=== PATIENT | female | born 1965 | race Caucasian/White ===

== ENCOUNTER 2016-12-25 17:05 | Emergency (ER) | payer MEDICARE, MEDICAID ==
[~2016-12-25 17:05] MED LIST: ALPR1 PO; ASPI81TA82 PO; ATOR40TA49 PO; CARV6.252 PO; CLOP75 PO; COLL30OI3 TOP; DOCU1CAP39 PO; FENO145T2 PO; FLUC100T41 PO; FLUO40CA PO; GABA300C3 PO; GENT0.1C TOP; HUMALOGP SQ; LEVEMIR SQ; LISI-591 PO; MAPA325T6 PO; METF500 PO; NITR0.4S SL; OXYC1SOL5 PO; PROT40TA PO; RANO500 PO; ROPI1TAB72 PO; TRAZ50TA4 PO; Z.0.COMMODE-3:1
[2016-12-25 17:08] VITALS: BP 135/78; PULSE 82; RESP 16; TEMP 97; O2SAT 99
[2016-12-25] MEDS ORDERED: KETOROLAC TROMETHAMINE 60 MG/2 ML (IM) VIAL IM ONE (17:30)
--- NOTE | 2016-12-25 17:31 | PD ---
HPI Chief Complaint: Oral / Dental Pain or Problem Time Seen by Provider: 17:15 Travel History International Travel<30 days: No Contact w/Intl Traveler<30days: No Traveled to known affect area: No History of Present Illness HPI 51-year-old female presents to the emergency department for evaluation of left lower gum pain 2 weeks. Patient reports irritation and pain of the gums on the left lower side and facial swelling. She reports possible denture irritation to the gum. She denies fever or chills. She denies chest pain, shortness of breath, nausea vomiting or diarrhea PFSH Past Medical History Hx Anticoagulant Therapy: No Arthritis: Yes Asthma: No Autoimmune Disease: No Anxiety: Yes Depression: Yes Heart Rhythm Problems: No Cancer: No Cardiac Catheterization: Yes Cardiovascular Problems: Yes High Cholesterol: Yes Chemotherapy: No Chest Pain: Yes Congestive Heart Failure: Yes COPD: No Cerebrovascular Accident: No Coronary Artery Disease: Yes Diabetes: Yes Patient Takes Glucophage: Yes Diminished Hearing: Yes Endocrine: Yes Gastrointestinal Disorders: Yes (GASTROPARESIS) GERD: Yes Genitourinary: Yes Hiatal Hernia: Yes (repaired in 2013) Heparin Induced Thrombocytopen: No Hypertension: Yes Immune Disorder: No Implanted Vascular Access Dvce: No Kidney Stones: No Musculoskeletal: Yes Neurologic: Yes (Anxiety) Psychiatric: Yes Reproductive: No Respiratory: Yes Immunizations Current: Yes Migraines: No Myocardial Infarction: Yes (02/2000) Radiation Therapy: No Renal Failure: No Seizures: No Sickle Cell Disease: No Sleep Apnea: No Thyroid Disease: No Tetanus Vaccination: > 5 Years Influenza Vaccination: No ?: Not Menopausal: Yes Past Surgical History Abdominal Surgery: Yes (Hernia, gallbladder removal) AICD: No Arteriovenous Shunt: No Cardiac Surgery: No Section: Yes Cholecystectomy: Yes Ear Surgery: No Endocrine Surgery: No Eye Surgery: No Genitourinary Surgery: No Gynecologic Surgery: Yes (C section) Hysterectomy: No Insulin Pump: No Joint Replacement: No Oral Surgery: No Pacemaker: No Thoracic Surgery: No Other Surgery: Yes (LEFT BUTTOCK ABCESS) Social History Alcohol Use: No Tobacco Use: Yes (1ppd) Substance Use: Yes (marijuana for stomach. not medical or prescibed) Allergies-Medications (Allergen,Severity, Reaction): Coded Allergies: No Known Allergies (Unverified , 12/25/16) Reported Meds & Prescriptions Reported Meds & Active Scripts Active Penicillin V Potassium 250 Mg Tab 250 Mg PO Q6H Reported Plavix (Clopidogrel Bisulfate) 75 Mg Tab 75 Mg PO DAILY Aspirin Low Dose (Aspirin) 81 Mg Chew 81 Mg CHEW DAILY Atorvastatin (Atorvastatin Calcium) 40 Mg Tab 40 Mg PO HS Carvedilol 6.25 Mg Tab 6.25 Mg PO BID Gabapentin 300 Mg Cap 300 Mg PO TID Metformin (Metformin HCl) 1,000 Mg Tab 1,000 Mg PO BIDPC With meals Lisinopril 20 Mg Tab 20 Mg PO DAILY Fluoxetine (Fluoxetine HCl) 40 Mg Cap 40 Cap PO DAILY Protonix (Pantoprazole Sodium) 40 Mg Tab 40 Mg PO DAILY Ranexa ER 12 HR (Ranolazine) 500 Mg Tab 500 Mg PO BID Requip (Ropinirole) 1 Mg Tab 1 Mg PO BID Trazodone (Trazodone HCl) 150 Mg Tablet 150 Mg PO HS Review of Systems Except as stated in HPI: all other systems reviewed are Neg Physical Exam Narrative GENERAL: Well-nourished, well-developed patient. SKIN: Focused skin assessment warm/dry. HEAD: Normocephalic. EYES: No scleral icterus. No injection or drainage. MOUTH: Mucous membranes moist, no lesions, tongue and gums appear normal. Left lower gum is erythematous and tender to palpation. Patient has no teeth in the lower jaw. NECK: Supple, trachea midline. No JVD or lymphadenopathy. CARDIOVASCULAR: Regular rate and rhythm without murmurs, gallops, or rubs. RESPIRATORY: Breath sounds equal bilaterally. No accessory muscle use. GASTROINTESTINAL: Abdomen soft, non-tender, nondistended. Data Data Last Documented VS Vital Signs Date Time Temp Pulse Resp B/P (MAP) Pulse Ox O2 Delivery O2 Flow Rate FiO2 12/25/16 17:08 97.0 82 16 135/78 (97) 99 Orders Orders Ketorolac Inj (Toradol Inj) (12/25/16 17:30) [facility] Medical Decision Making Medical Screen Exam Complete: Yes Emergency Medical Condition: Yes Differential Diagnosis Oral infection, TMJ, oral abscess Narrative Course 51-year-old female presents emergency department for evaluation of left lower gum pain 2 weeks. Patient reports irritation and pain of the gums on the left lower side and facial swelling. She reports possible denture irritation to the gum. She denies fever or chills. On exam patient has erythema and gum tenderness and left lower side. Patient be treated for oral infection. Instructed to follow-up with dentist. Patient verbalizes understanding and agrees to plan. Diagnosis Primary Impression: Oral infection Referrals: Dentist Additional Instructions: You may take [id number] Tylenol or Motrin as needed for pain. Continue the antibiotics as prescribed. Follow-up with her dentist. Scripts Penicillin V Potassium (Penicillin V Potassium) 250 Mg Tab 250 MG PO Q6H for Infection, #28 TAB 0 Refills Prov: Megan Zavala 12/25/16 Disposition: 01 DISCHARGE HOME Condition: Stable Megan Zavala Dec 25, 2016 17:31
[2016-12-25] MEDS ORDERED: TRAZ1TAB45 PO (17:32)
[2016-12-25] MEDS ORDERED: RANO500 PO (17:32)
[2016-12-25] MEDS ORDERED: LISI-515 PO (17:32)
[2016-12-25] MEDS ORDERED: ROPI1TAB72 PO (17:32)
[2016-12-25] MEDS ORDERED: FLUO40CA PO (17:32)
[2016-12-25] MEDS ORDERED: PROT40TA PO (17:32)
[2016-12-25] MEDS ORDERED: METF1000 PO (17:32)
[2016-12-25] MEDS ORDERED: ASPI81CH37 CHEW (17:32)
[2016-12-25] MEDS ORDERED: ATOR40TA16 PO (17:32)
[2016-12-25] MEDS ORDERED: GABA300C5 PO (17:32)
[2016-12-25] MEDS ORDERED: CARV6.252 PO (17:32)
[2016-12-25] MEDS ORDERED: PLAV75TA29 PO (17:32)
[2016-12-25] MEDS ORDERED: PENI250T PO (17:36)
== END 2016-12-25 17:58 | disposition home or self-care (01) ==
LOC: PHEFT 17:05
DX: K04.7 Periapical abscess without sinus (principal); E11.9 Type 2 diabetes mellitus without complications; I10 Essential (primary) hypertension; E78.00 Pure hypercholesterolemia, unspecified; I25.2 Old myocardial infarction; F17.200 Nicotine dependence, unspecified, uncomplicated; Z79.84 Long term (current) use of oral hypoglycemic drugs; Z87.39 Personal history of other diseases of the musculoskeletal system and connective tissue; Z86.59 Personal history of other mental and behavioral disorders; Z86.79 Personal history of other diseases of the circulatory system; Z87.19 Personal history of other diseases of the digestive system; Z87.448 Personal history of other diseases of urinary system
CPT/HCPCS: 96374; 99284; J1885

== ENCOUNTER 2017-08-24 19:45 | Observation (INO) | payer MEDICARE, MEDICAID ==
[~2017-08-24] VITALS: Ht 175.3 cm; Wt 75.0 kg
[~2017-08-24 19:45] MED LIST changes: -ALPR1 PO; +ASPI81CH6 CHEW; -ASPI81TA82 PO; +ATOR40TA16 PO; -ATOR40TA49 PO; -CLOP75 PO; -COLL30OI3 TOP; -DOCU1CAP39 PO; -FENO145T2 PO; +FLU60SYR19 IM; -FLUC100T41 PO; -GABA300C3 PO; +GABA300C5 PO; -GENT0.1C TOP; -HUMALOGP SQ; -LEVEMIR SQ; +LISI-515 PO; -LISI-591 PO; -MAPA325T6 PO; +METF1000 PO; -METF500 PO; -NITR0.4S SL; -OXYC1SOL5 PO; +PLAV75TA29 PO; +PNEU0.5I2 SQ; +TRAZ1TAB14 PO; -TRAZ50TA4 PO; +WHEEMIS3; -Z.0.COMMODE-3:1
[2017-08-24 20:11] VITALS: BP 142/95; PULSE 99; RESP 18; O2SAT 100
[2017-08-24 20:17] VITALS: BP 151/100; O2SAT 100
[2017-08-24] MEDS ORDERED: FENO145T2 PO (20:22)
--- NOTE | 2017-08-24 20:34 | PD ---
HPI Chief Complaint: Pain: Acute or Chronic Time Seen by Provider: 20:13 Travel History International Travel<30 days: No Contact w/Intl Traveler<30days: No Traveled to known affect area: No History of Present Illness HPI The patient is a 52 year old female who presents to the [facility] emergency department with a history of reportedly not feeling well for years. On further discussion the patient reports that over the last 2 months her main concern is that she has had left-sided jaw pain. She has mentioned this to her primary care physician, 1 of the family practice residents. She reports that she was told that it may be related to infection. She did receive a course of antibiotic with brief improvement. She is edentulous. She has not been seen by a dentist regarding the jaw pain. It was also considered that this could be related to TMJ. The patient reports that she has been taking Tylenol for the pain. She is unsure whether she has had any fevers. She reports that over the last 2 days the discomfort is greatly increased. She has not been eating or drinking well because of it. She last took Tylenol at 3:30 PM for the pain. She additionally reports that over the last 2 weeks she has had diarrhea. She reports having diarrhea 3-4 times a day. She reports that the diarrhea is yellow to brown in color. She denies having any blood in her stool or mucus in her stool. The patient is a diabetic. She is unsure what her blood sugar has been recently and she has not checked it. The patient out in triage began to have chest pain and diaphoresis. She reports having a history of coronary artery disease with myocardial infarction at 46 years of age. She reports being of vasculopath with very tiny arteries and veins. She was told that she needed bypass, or stenting, however her vessels were too small to accommodate any treatment. She is on medical management at this time for her cardiac disease. Unfortunately, the patient continues to smoke one half a pack of cigarettes per day. The patient reports having intermittent shortness of breath. On review of systems otherwise, the patient denies having any worsening cough or congestion, neck pain, urinary symptoms, or neurologic symptoms. Additionally, on review of systems the patient reports having abdominal pain in the center of her abdomen. She reports having chronic nausea vomiting which has been diagnosed as being related to gastroparesis. Her last episode of vomiting was 2 days ago. [facility] Past Medical History Narrative Medical The patient's past medical history is significant for coronary artery disease, diabetes mellitus, COPD, tobacco abuse, hypertension, depression, history of gastroparesis, diabetic neuropathy, hyperlipidemia, restless leg syndrome. Hx Anticoagulant Therapy: Yes (aspirin and plavix) Arthritis: Yes Asthma: No Autoimmune Disease: No Anxiety: Yes Depression: Yes Heart Rhythm Problems: No Cancer: No Cardiac Catheterization: Yes Cardiovascular Problems: Yes High Cholesterol: Yes Chemotherapy: No Chest Pain: Yes Congestive Heart Failure: Yes COPD: No Cerebrovascular Accident: No Coronary Artery Disease: Yes Diabetes: Yes Patient Takes Glucophage: Yes (metformin) Diminished Hearing: Yes Endocrine: Yes Gastrointestinal Disorders: Yes (GASTROPARESIS) GERD: Yes Genitourinary: Yes Hiatal Hernia: Yes (repaired in 2013) Heparin Induced Thrombocytopen: No Hypertension: Yes Immune Disorder: No Implanted Vascular Access Dvce: No Kidney Stones: No Musculoskeletal: Yes Neurologic: Yes (Anxiety) Psychiatric: Yes Reproductive: No Respiratory: Yes Immunizations Current: Yes Migraines: No Myocardial Infarction: Yes (02/2000) Radiation Therapy: No Renal Failure: No Seizures: No Sickle Cell Disease: No Sleep Apnea: No Thyroid Disease: No Tetanus Vaccination: Unknown Influenza Vaccination: Yes ?: Not Menopausal: Yes Past Surgical History Narrative Surgical The patient's past surgical history is significant for left above the knee amputation, cholecystectomy, hysterectomy. Abdominal Surgery: Yes (Hernia, gallbladder removal) AICD: No Arteriovenous Shunt: No Cardiac Surgery: No Section: Yes Cholecystectomy: Yes Ear Surgery: No Endocrine Surgery: No Eye Surgery: No Genitourinary Surgery: No Gynecologic Surgery: Yes (C section) Hysterectomy: No Insulin Pump: No Joint Replacement: No Oral Surgery: No Pacemaker: No Thoracic Surgery: No Other Surgery: Yes (LEFT BUTTOCK ABCESS) Social History Alcohol Use: No Tobacco Use: Yes (One half pack per day) Substance Use: Yes (Marijuana) Allergies-Medications (Allergen,Severity, Reaction): Coded Allergies: No Known Allergies (Unverified Allergy, Unknown, 08/24/17) Reported Meds & Prescriptions Reported Meds & Active Scripts Active Atorvastatin (Atorvastatin Calcium) 40 Mg Tab 40 Mg PO HS Gabapentin 300 Mg Cap 300 Mg PO TID Lisinopril 20 Mg Tab 20 Mg PO DAILY Protonix (Pantoprazole Sodium) 40 Mg Tab 40 Mg PO DAILY Requip (Ropinirole) 1 Mg Tab 1 Mg PO BID Ranexa ER 12 HR (Ranolazine) 500 Mg Tab 1,000 Mg PO BID Plavix (Clopidogrel Bisulfate) 75 Mg Tab 75 Mg PO DAILY Metformin (Metformin HCl) 1,000 Mg Tab 1,000 Mg PO BIDPC With meals Carvedilol 6.25 Mg Tab 12.5 Mg PO BID Aspirin Low Dose (Aspirin) 81 Mg Chew 81 Mg CHEW DAILY 30 Days Trazodone (Trazodone HCl) 150 Mg Tablet 150 Mg PO HS Wheelchair (Device) 1 Mis Mis Ea .ROUTE DIRECTED Reported Fenofibrate 145 Mg Tab 145 Mg PO DAILY Review of Systems Except as stated in HPI: all other systems reviewed are Neg General / Constitutional: No: Fever Eyes: No: Visual changes HENT: Positive: Dental Difficulties, No: Headaches, Congestion Cardiovascular: Positive: Chest Pain or Discomfort, Diaphoresis, Dyspnea on exertion Respiratory: Positive: Shortness of Breath, No: Cough Gastrointestinal: Positive: Nausea, Vomiting, Diarrhea, Abdominal Pain, Changes in Bowel Habits, Loss of Appetite, No: Hematemesis, Hematochezia Genitourinary: No: Dysuria Musculoskeletal: No: Pain Skin: No Rash Neurologic: Positive: Weakness (Generalized weakness), No: Focal Abnormalities , Change in Mentation, Slurred Speech, Sensory Disturbance Psychiatric: No: Depression Endocrine: No: Polydipsia Hematologic/Lymphatic: No: Easy Bruising Physical Exam Narrative General: The patient is a well-developed well-nourished female, uncomfortable appearing on arrival with a flushed face, diaphoresis, reports of chest pain out in triage that is substernal.. Head and Neck exam: Head is normocephalic atraumatic. Eyes: EOMI, pupils are equal round and reactive to light. Nose: Midline septum with pink mucous membranes Mouth: The patient is edentulous with an upper denture in place. The patient has no lower dentures. The patient reports that the area of pain is the left side of her jaw. The patient has no TMJ tenderness on palpation. No pop or locking with opening her mouth on palpation of her TMJ. No visible erythema, edema, or abscess formation noted on examination of her gums. Moist mucus membranes. Posterior oropharynx is not erythematous. No tonsillar hypertrophy. Uvula midline. Airway patent. Neck: No palpable lymphadenopathy. No nuchal rigidity. No thyromegaly. Cardiovascular: Sinus tachycardia in the low 100 without murmurs, gallops, or rubs. No pulse deficit to the extremities on simultaneous auscultation and palpation of her radial artery. Lungs: Clear to auscultation bilaterally. No wheezes, rhonchi, or rales. Abdomen: Soft, with reported discomfort on deep palpation around the umbilicus, no other tenderness on palpation of the other quadrants of the abdomen. Normal bowel sounds are audible. No tenderness on palpation of McBurney's point. No guarding, rebound, or rigidity. Negative Soler sign. Extremities: No clubbing, cyanosis, or edema. 1+ pulses in the right lower extremity, 2+ pulses bilateral upper extremities. The patient has a left [id number] amputation that is healed well. No calf tenderness on palpation on the right. Back: No spinous process tenderness to palpation. No costovertebral angle tenderness to palpation. Neurologic Exam: Grossly nonfocal. Skin Exam: No rash noted. Intact skin that is warm and dry. Data Data Last Documented VS Vital Signs Date Time Temp Pulse Resp B/P (MAP) Pulse Ox O2 Delivery O2 Flow Rate FiO2 08/24/17 21:44 84 18 160/100 (120) 99 Room Air Orders Orders Electrocardiogram (08/24/17 20:13) Complete Blood Count With Diff (08/24/17 20:13) Comprehensive Metabolic Panel (08/24/17 20:13) Creatine Kinase (Cpk) (08/24/17 20:13) Ckmb (Isoenzyme) Profile (08/24/17 20:13) Troponin I (08/24/17 20:13) B-Type Natriuretic Peptide (08/24/17 20:13) Prothrombin Time / Inr (Pt) (08/24/17 20:13) Act Partial Throm Time (Ptt) (08/24/17 20:13) C-Reactive Protein (Crp) (08/24/17 20:13) Lipase (08/24/17 20:13) Westergren Sedimentation Rate (08/24/17 20:13) D-Dimer (08/24/17 20:13) Magnesium (Mg) (08/24/17 20:13) Thyroid Stimulating Hormone (08/24/17 20:13) Chest, Single Ap (08/24/17 20:13) Iv Access Insert/Monitor (08/24/17 20:13) Ecg Monitoring (08/24/17 20:13) Oximetry (08/24/17 20:13) Enteric Path (Stool) (08/24/17 20:17) C Diff Toxin Pcr (08/24/17 20:17) Stool Wbc (Leukocytes) (08/24/17 20:17) Lactic Acid Sepsis Protocol (08/24/17 20:37) Blood Culture (08/24/17 20:37) Ct Facial Bones W/O Iv Cont (08/24/17 20:37) Sodium Chlor 0.9% 1000 Ml Inj (Ns 1000 M (08/24/17 20:45) Sodium Chlor 0.9% 1000 Ml Inj (Ns 1000 M (08/24/17 20:45) Ondansetron Inj (Zofran Inj) (08/24/17 20:45) Morphine Inj (Morphine Inj) (08/24/17 20:45) Aspirin Chew (Aspirin Chew) (08/24/17 21:00) Nitroglycerin 2% Oint (Nitroglycerin 2% (08/24/17 21:00) Nitroglycerin Sl (Nitrostat Sl) (08/24/17 21:00) Admit Order (Ed Use Only) (08/24/17 21:50) Labs Laboratory Tests Test 08/24/17 20:20 08/24/17 20:48 White Blood Count 12.2 TH/MM3 Red Blood Count 4.45 MIL/MM3 Hemoglobin 15.4 GM/DL Hematocrit 45.8 % Mean Corpuscular Volume 102.8 FL Mean Corpuscular Hemoglobin 34.5 PG Mean Corpuscular Hemoglobin Concent 33.6 % Red Cell Distribution Width 16.6 % Platelet Count 483 TH/MM3 Mean Platelet Volume 8.2 FL Neutrophils (%) (Auto) 61.1 % Lymphocytes (%) (Auto) 30.7 % Monocytes (%) (Auto) 7.2 % Eosinophils (%) (Auto) 0.3 % Basophils (%) (Auto) 0.7 % Neutrophils # (Auto) 7.4 TH/MM3 Lymphocytes # (Auto) 3.8 TH/MM3 Monocytes # (Auto) 0.9 TH/MM3 Eosinophils # (Auto) 0.0 TH/MM3 Basophils # (Auto) 0.1 TH/MM3 CBC Comment DIFF FINAL Differential Comment Erythrocyte Sedimentation Rate 4 mm/hr Prothrombin Time 10.7 SEC Prothromb Time International Ratio 1.1 RATIO Activated Partial Thromboplast Time 26.4 SEC D-Dimer Quantitative (PE/DVT) 0.24 MG/L FEU Blood Urea Nitrogen 10 MG/DL Creatinine 0.91 MG/DL Random Glucose 149 MG/DL Total Protein 8.7 GM/DL Albumin 4.7 GM/DL Calcium Level 10.2 MG/DL Magnesium Level 1.2 MG/DL Alkaline Phosphatase 29 U/L Aspartate Amino Transf (AST/SGOT) 48 U/L Alanine Aminotransferase (ALT/SGPT) 39 U/L Total Bilirubin 0.8 MG/DL Sodium Level 138 MEQ/L Potassium Level 4.7 MEQ/L Chloride Level 105 MEQ/L Carbon Dioxide Level 20.4 MEQ/L Anion Gap 13 MEQ/L Estimat Glomerular Filtration Rate 65 ML/MIN Total Creatine Kinase 86 U/L Troponin I LESS THAN 0.02 NG/ML C-Reactive Protein LESS THAN 0.29 MG/DL B-Type Natriuretic Peptide 139 PG/ML Lipase 285 U/L Thyroid Stimulating Hormone 3rd Gen 3.120 uIU/ML Lactic Acid Level 1.5 mmol/L MDM Medical Decision Making Medical Screen Exam Complete: Yes Emergency Medical Condition: Yes Medical Record Reviewed: Yes Differential Diagnosis Osteomyelitis of the jaw, versus trigeminal neuralgia, versus abscess, versus acute coronary syndrome with referred pain to the jaw, versus C. difficile colitis from recent antibiotic use Narrative Course During the course of the patient's emergency department visit, the patient's history, examination, and differential diagnosis were reviewed with the patient. The patient was placed on a monitor technician with oximetry and frequent blood pressure monitoring. The patient had IV access obtained and blood work sent for analysis. The patient had an EKG done on arrival. The patient's EKG shows sinus rhythm, heart rate of 90, QRS duration 89 ms, QTC [address] segment elevation, downsloping ST segment depression in V1, V2, V3. The patient was initially provided normal saline 1 L IV fluid bolus, morphine for pain, Zofran for nausea. The patient was given aspirin 324 mg p.o. 1. The patient was given sublingual nitroglycerin 1, nitroglycerin 1 inch the chest wall. The patient's laboratory studies were reviewed and remarkable for 08/24/17 20:20 Total Protein 8.7 H, Albumin 4.7, Calcium Level 10.2 H, Magnesium Level 1.2 L, Alkaline Phosphatase 29 L, Aspartate Amino Transf (AST/SGOT) 48 H, Alanine Aminotransferase (ALT/SGPT) 39, Total Bilirubin 0.8, sedimentation rate is within normal limits at 4, CRP is less than 0.29, TSH 3.12, lipase 285, cardiac enzymes within normal limits, BNP 139, lactic acid 1.5. PT PTT within normal limits, d-dimer 0.24 decreasing the likelihood of pulmonary embolism in this patient with no other significant risk factors. Radiology studies were reviewed and remarkable for Last Impressions Maxillofacial CT [id number]/24/[id number] Signed Impressions: Service Date/Time: Thursday, August 24, 2017 20:59 - CONCLUSION: 1. No acute findings. Patient is edentulous. Costa Madden MD Chest X-Ray 08/24/[id number] Signed Impressions: Service Date/Time: Thursday, August 24, 2017 20:35 - CONCLUSION: No acute disease. Costa Madden MD The patient will be admitted to the hospital for chest pain rule out acute coronary syndrome, and diarrhea rule out C. difficile colitis associated with dehydration The patient's results were discussed with the patient, including the plan of care. I explained that further testing and/ or monitoring is indicated based on the patient's history, examination, and/ or laboratory findings. Therefore, I recommended admission for additional evaluation. The patient expressed understanding and was agreeable with this plan. The patient was admitted to the hospital in stable condition and sent to a bed under the care of the family practice resident service. Physician Communication Physician Communication The patient's case including history, pertinent physical examination findings, and laboratory studies were discussed with the family practice resident. It was agreed that the patient would be admitted to the family practice service. Diagnosis Primary Impression: Chest pain, rule out acute myocardial infarction Additional Impression: Diarrhea Qualified Codes: R19.7 - Diarrhea, unspecified Admitting Information Admitting Physician Requests: Vicki Gunter MD August 24, 2017 20:34
[2017-08-24 20:38] LABS: AUTOMATED NEUTROPHIL # 7.4 TH/MM3 (1.8-7.7); BASOPHIL # 0.1 TH/MM3 (0-0.2); BASOPHIL % 0.7 % (0.0-2.0); EOSINOPHIL % 0.3 % (0.0-4.0); HEMATOCRIT 45.8 % (35.0-46.0); HEMOGLOBIN 15.4 GM/DL (11.6-15.3); LYMPH % 30.7 % (9.0-44.0); LYMPHOCYTE # 3.8 TH/MM3 (1.0-4.8); MEAN CELL VOLUME 102.8 FL (80.0-100.0); MEAN CORPUSCULAR HEMOGLOBIN 34.5 PG (27.0-34.0); MEAN CORPUSCULAR HGB CONC 33.6 % (32.0-36.0); MEAN PLATELET VOLUME 8.2 FL (7.0-11.0); MONO % 7.2 % (0.0-8.0); MONOCYTE # 0.9 TH/MM3 (0-0.9); NEUT % 61.1 % (16.0-70.0); PLATELET COUNT 483 TH/MM3 (150-450); RED BLOOD COUNT 4.45 MIL/MM3 (4.00-5.30); RED CELL DISTRIBUTION WIDTH 16.6 % (11.6-17.2); WHITE BLOOD COUNT 12.2 TH/MM3 (4.0-11.0)
[2017-08-24] MEDS ORDERED: SODIUM CHLOR 0.9% 1000 ML INJ 1,000 ML IV ONE ×2 (20:45)
[2017-08-24] MEDS ORDERED: MORPHINE SULFATE 4 MG/ML INJ IV PUSH ONE (20:45)
[2017-08-24] MEDS ORDERED: ONDANSETRON HCL 4 MG/2 ML VIAL IV ONE (20:45)
[2017-08-24 20:55] LABS: INTERNATIONAL NORMALIZED RATIO 1.1 RATIO; PROTHROMBIN TIME - PATIENT 10.7 SEC (9.8-11.6)
[2017-08-24 20:56] LABS: D-DIMER 0.24 MG/L FEU (0.00-0.50)
[2017-08-24] MEDS ORDERED: NITROGLYCERIN 2% OINT 1 GM PACKET TOPICAL ONE (21:00)
[2017-08-24] MEDS ORDERED: ASPIRIN 81 MG CHEW TAB CHEW ONE (21:00)
[2017-08-24] MEDS ORDERED: NITROGLYCERIN 0.4 MG SL 25 TABS/BTL SL ONE (21:00)
--- NOTE | 2017-08-24 21:12 | RADRPT ---
EXAM DATE/TIME: 08/24/2017 20:35 [facility] COMPARISON: CHEST SINGLE AP, September 17, 2015, 17:56. INDICATIONS : Chest pain. MEDICAL HISTORY : Hypertension. Diabetes mellitus type II. Chronic obstructive pulmonary disease. SURGICAL HISTORY : Cardiac Cath. ENCOUNTER: Initial ACUITY: 1 day PAIN SCORE: 4/10 LOCATION: chest midline. FINDINGS: A single view of the chest demonstrates the lungs to be symmetrically aerated without evidence of mas s, infiltrate or effusion. The cardiomediastinal contours are unremarkable. Osseous structures are intact. CONCLUSION: No acute disease. Costa Madden MD on August 24, 2017 at 21:09 Board Certified Radiologist. This report was verified electronically.
--- NOTE | 2017-08-24 21:18 | RADRPT ---
EXAM DATE/TIME: 08/24/2017 20:59 [facility] COMPARISON: No previous studies available for comparison. INDICATIONS : Left jaw pain. RADIATION DOSE: 29.28 CTDIvol (mGy) MEDICAL HISTORY : Cardiovascular disease. Hypertension. SURGICAL HISTORY : None. ENCOUNTER: Initial ACUITY: 3 weeks PAIN SCORE: 7/10 LOCATION: Left facial TECHNIQUE: Volumetric scanning of the facial bones was performed. Using automated exposure control and adjustme nt of the mA and/or kV according to patient size, radiation dose was kept as low as reasonably achiev able to obtain optimal diagnostic quality images. DICOM format image data is available electronicMakuCell y for review and comparison. FINDINGS: ORBITS: The orbital and infraorbital osseous structures are intact. The retroconal structures have a normal configuration. No radiopaque foreign bodies are seen. NASAL BONE: The nasal bone and maxillary spine are intact ZYGOMATIC ARCHES: Symmetric without evidence of fracture. SINUSES: The maxillary, ethmoid and frontal sinuses are intact. No air-fluid levels seen. NASAL CAVITY: The nasal septum is intact and midline. The lacrimal ducts are intact. SOFT TISSUES: No radiopaque foreign bodies seen. No soft-tissue swelling is seen. INTRACRANIAL: No intracranial air seen. CRIBIFORM PLATE: Grossly intact. CONCLUSION: 1. No acute findings. Patient is edentulous. Costa Madden MD on August 24, 2017 at 21:13 Board Certified Radiologist. This report was verified electronically.
[2017-08-24 21:26] LABS: ALBUMIN 4.7 GM/DL (3.4-5.0); ALKALINE PHOSPHATASE 29 U/L (45-117); ALT (GPT) 39 U/L (10-53); AST (GOT) 48 U/L (15-37); BICARBONATE 20.4 MEQ/L (21.0-32.0); BLOOD UREA NITROGEN 10 MG/DL (7-18); C-REACTIVE PROTEIN LESS THAN 0.29 MG/DL (0.00-0.30); CALCIUM 10.2 MG/DL (8.5-10.1); CHLORIDE 105 MEQ/L (98-107); CREATININE 0.91 MG/DL (0.50-1.00); GLOMERULAR FILTRATION RATE 65 ML/MIN (>89); GLUCOSE,RANDOM 149 MG/DL (74-106); MAGNESIUM 1.2 MG/DL (1.5-2.5); SODIUM (NA) 138 MEQ/L (136-145); TOTAL BILIRUBIN ADULT 0.8 MG/DL (0.2-1.0); TOTAL PROTEIN 8.7 GM/DL (6.4-8.2); TROPONIN I LESS THAN 0.02 NG/ML (0.02-0.05)
[2017-08-24 21:44] VITALS: BP 160/100; PULSE 84; RESP 18; O2SAT 99
--- NOTE | 2017-08-24 21:58 | HHI.HP ---
HPI Service Family Medicine Primary Care Physician Stanley Shafer MD Admission Diagnosis cp r/o acs, Diarrhea, r/o C diff Diagnoses: International Travel<30 Days: No Contact w/Intl Traveler<30days: No Known Affected Area: No History of Present Illness 52 yo female with complex past medical history including DM with neuropathy, gastroparesis, HTN, CAD, peripheral vascular disease presenting with a 3 day history of fever, chills, malaise, decreased appetite, diaphoresis. She also notes chest pain today. During this episode, her existing jaw pain (which she saw her PCP for in March and was given a course of antibiotic) flared up. Jaw pain feels like "electric jolt" on both sides of her jaw. No pain on chewing. She also notes diarrhea yellow/brown in color, 3 BM per day for the last few days. Review of Systems Constitutional: COMPLAINS OF: Fever, Chills, Change in appetite, DENIES: Weight loss Endocrine: COMPLAINS OF: Heat/cold intolerance Eyes: COMPLAINS OF: Blurred vision (not new), DENIES: Vision loss Ears, nose, mouth, throat: DENIES: Hearing loss, Throat pain, Running Nose Respiratory: COMPLAINS OF: Cough (dry), DENIES: Wheezing, Sputum production Cardiovascular: COMPLAINS OF: Chest pain, DENIES: Palpitations Gastrointestinal: COMPLAINS OF: Abdominal pain, Diarrhea, Nausea, Anorexia, DENIES: Black stools, Bloody stools, Constipation, Vomiting Genitourinary: DENIES: Abnormal vaginal bleeding, Dysmenorrhea Musculoskeletal: COMPLAINS OF: Muscle aches, DENIES: Joint pain Integumentary: DENIES: Rash Hematologic/lymphatic: DENIES: Bruising Neurologic: COMPLAINS OF: Tremor (LLE), DENIES: Headache, Localized weakness, Paresthesias Psychiatric: DENIES: Anxiety, Confusion, Mood changes, Depression Past Family Social History Past Medical History DM w/ gastroparesis, neuropathy CAD Hyperlipidemia HTN Peripheral vascular disease Urinary incontinence Anxiety Depression Past Surgical History Angioplasty (LLE bypass) Cholecystectomy Hysterectomy Hernia repair LLE AKA 2015 Reported Medications Reported Meds & Active Scripts Active Atorvastatin (Atorvastatin Calcium) 40 Mg Tab 40 Mg PO HS Gabapentin 300 Mg Cap 300 Mg PO TID Lisinopril 20 Mg Tab 20 Mg PO DAILY Protonix (Pantoprazole Sodium) 40 Mg Tab 40 Mg PO DAILY Requip (Ropinirole) 1 Mg Tab 1 Mg PO BID Ranexa ER 12 HR (Ranolazine) 500 Mg Tab 1,000 Mg PO BID Plavix (Clopidogrel Bisulfate) 75 Mg Tab 75 Mg PO DAILY Metformin (Metformin HCl) 1,000 Mg Tab 1,000 Mg PO BIDPC With meals Carvedilol 6.25 Mg Tab 12.5 Mg PO BID Aspirin Low Dose (Aspirin) 81 Mg Chew 81 Mg CHEW DAILY 30 Days Trazodone (Trazodone HCl) 150 Mg Tablet 150 Mg PO HS Wheelchair (Device) 1 Mis Mis Ea .ROUTE DIRECTED Reported Fenofibrate 145 Mg Tab 145 Mg PO DAILY Allergies: Coded Allergies: No Known Allergies (Unverified Allergy, Unknown, 08/24/17) Active Ordered Medications Current Medications Medications (Trade) Dose Ordered Sig/Kristy Route Start Time Stop Time Status Last Admin Sodium Chloride 1,000 ml @ 125 mls/hr Q8H IV 08/24/17 22:33 (NS Flush) 2 ml UNSCH PRN IV FLUSH 08/24/17 22:45 (NS Flush) 2 ml BID IV FLUSH 08/25/17 09:00 (Tylenol) 650 mg Q4H PRN PO 08/24/17 22:45 (Lovenox Inj) 40 mg Q24H SQ 08/25/17 00:00 (Narcan Inj) 0.4 mg UNSCH PRN IV PUSH 08/24/17 22:45 (Katrina-Colace) 1 tab BID PO 08/25/17 09:00 (Milk Of Magnesia Liq) 30 ml Q12H PRN PO 08/24/17 22:45 (Senokot) 17.2 mg Q12H PRN PO 08/24/17 22:45 (Dulcolax Supp) 10 mg DAILY PRN RECTAL 08/24/17 22:45 (Lactulose Liq) 30 ml DAILY PRN PO 08/24/17 22:45 Family History Father age 81 - heart disease Mother - living at age 71 2 sisters and 1 brother Social History and has two sons Has a 10th grade high school education monogamous with her Tob: 1 PPD x 30 years, down to 1/2 PPD Alc: None Drugs: None Physical Exam Vital Signs Vital Signs Date Time Temp Pulse Resp B/P (MAP) Pulse Ox O2 Delivery O2 Flow Rate FiO2 08/24/17 21:44 84 18 160/100 (120) 99 Room Air 08/24/17 20:17 100 Room Air 08/24/17 20:17 151/100 (117) 08/24/17 20:11 99 18 142/95 (111) 100 Physical Exam GENERAL: WDWN overweight female lying in bed, appearing ill, diaphoretic, but not acutely distressed SKIN: No rashes, ecchymoses or lesions. Cool and dry. HEAD: NC/AT EYES: PERRL. EOMI. No conjunctival injection or drainage. ENT: MMM, OP without erythema, tonsillar swelling, or exudate. TM on left with small whitish lesion on ear drum, possible cholesteatoma. BL TMs with otherwise good landmarks and no erythema/bulging. NECK: Supple, non-tender CARDIOVASCULAR: NRRR. Normal S1/S2. No MRG RESPIRATORY: Normal rate and effort. CTAB. No crackles or wheezes. GASTROINTESTINAL: Abdomen soft, non-distended, tender to palpation suprapubically. No hepato-splenomegaly or palpable masses. MUSCULOSKELETAL: Extremities without clubbing, cyanosis, or edema. LLE s/p AKA, site c/d/i with no erythema, edema, or warmth. RLE with chronic clean ulcer over lateral malleolus. NEUROLOGICAL: Awake and alert. Cranial nerves II through XII grossly intact. Moves all extremities without difficulty. Normal speech. Laboratory Laboratory Tests Test 08/24/17 20:20 08/24/17 20:48 White Blood Count 12.2 Red Blood Count 4.45 Hemoglobin 15.4 Hematocrit 45.8 Mean Corpuscular Volume 102.8 Mean Corpuscular Hemoglobin 34.5 Mean Corpuscular Hemoglobin Concent 33.6 Red Cell Distribution Width 16.6 Platelet Count 483 Mean Platelet Volume 8.2 Neutrophils (%) (Auto) 61.1 Lymphocytes (%) (Auto) 30.7 Monocytes (%) (Auto) 7.2 Eosinophils (%) (Auto) 0.3 Basophils (%) (Auto) 0.7 Neutrophils # (Auto) 7.4 Lymphocytes # (Auto) 3.8 Monocytes # (Auto) 0.9 Eosinophils # (Auto) 0.0 Basophils # (Auto) 0.1 CBC Comment DIFF FINAL Differential Comment Erythrocyte Sedimentation Rate 4 Prothrombin Time 10.7 Prothromb Time International Ratio 1.1 Activated Partial Thromboplast Time 26.4 D-Dimer Quantitative (PE/DVT) 0.24 Blood Urea Nitrogen 10 Creatinine 0.91 Random Glucose 149 Total Protein 8.7 Albumin 4.7 Calcium Level 10.2 Magnesium Level 1.2 Alkaline Phosphatase 29 Aspartate Amino Transf (AST/SGOT) 48 Alanine Aminotransferase (ALT/SGPT) 39 Total Bilirubin 0.8 Sodium Level 138 Potassium Level 4.7 Chloride Level 105 Carbon Dioxide Level 20.4 Anion Gap 13 Estimat Glomerular Filtration Rate 65 Total Creatine Kinase 86 Troponin I LESS THAN 0.02 C-Reactive Protein LESS THAN 0.29 B-Type Natriuretic Peptide 139 Lipase 285 Thyroid Stimulating Hormone 3rd Gen 3.120 Lactic Acid Level 1.5 Date/Time Source Procedure Growth Status 08/24/17 20:53 Blood Peripheral Aerobic Blood Culture Pending Received 08/24/17 20:53 Blood Peripheral Anaerobic Blood Culture Pending Received Result Diagram: 08/24/17201908/24/172019 Imaging Last Impressions Maxillofacial CT 08/24/172036 Signed Impressions: Service Date/Time: Thursday, August 24, 2017 20:59 - CONCLUSION: 1. No acute findings. Patient is edentulous. Costa Madden MD Chest X-Ray 08/24/172012 Signed Impressions: Service Date/Time: Thursday, August 24, 2017 20:35 - CONCLUSION: No acute disease. MD Tyrel Hubbardi VTE Risk Assessment Dago VTE Risk Assessment: Mod/High Risk (score >= 2) Assessment and Plan Assessment and Plan 52 yo female with PMH of DM with neuropathy, HTN, CAD presenting with: Problem List: (1) Jaw pain ICD Codes: R68.84 - Jaw pain Status: Chronic Plan: Acute on chronic Suspect TMJ pain exacerbated by viral illness No evidence of dental abscess on exam or lab testing CT scan shows no acute process -Toradol 30 mg IM x1 -Tylenol PRN pain thereafter -Follow clinically (2) Diarrhea ICD Codes: R19.7 - Diarrhea, unspecified Status: Acute Plan: By history this is suspicious for influenza or viral illness such as enterovirus Could be C diff, but no recent antibiotic use Unlikely to be inflammatory ESR normal WBC slightly elevated Lactic acid reassuring -Check C diff PCR -Check flu and respiratory panel -Check UA to r/o UTI given abdominal exam with suprapubic tenderness -IV fluids (3) Chest pain ICD Codes: R07.9 - Chest pain Status: Acute Plan: Has chronic angina, pain more epigastric by history Suspect diaphoresis due to viral illness (see above) Suspect GI etiology or costochondritis Initial troponin negative -Trend troponin x1 at 6 hours -Tylenol PRN -Continue home CAD meds (4) Urinary retention ICD Codes: R33.9 - Retention of urine, unspecified Status: Acute Plan: Tried voiding and couldn't. ER nurses placed cath which drained 500 cc of urine. -Leave diaz in for now, monitor I&O -Remove in AM and try voiding (5) Coronary artery disease ICD Codes: I25.10 - Atherosclerosis of coronary artery Status: Chronic Plan: With stable angina Continue home Ranexa, aspirin, plavix (6) Hypertension ICD Codes: I10 - Hypertension Status: Chronic Plan: Continue home Coreg, lisinopril (7) Diabetes ICD Codes: E11.9 - Type 2 diabetes mellitus without complications Status: Chronic Plan: Blood sugar on admission in good control -Continue home gabapentin for neuropathy -Hold metformin -Levemir 5 units BID -Low dose SSI -Accu-checks ACHS (8) Anxiety and depression ICD Codes: F41.8 - Mixed anxiety depressive disorder Status: Acute Plan: Stable Continue home Prozac Continue Trazodone HS (9) FEN/PPX Plan: Fluids: NS at 125 cc/hr Elecs: monitor and replete PRN Nutrition: Diet diabetic DVT: Lovenox GI: Continue home protonix Code status: Full code Adv Dir: None in place, though patient states she does not want prolonged life support if it were to come to that. Dispo: pending work-up of diarrhea/diaphoresis Problem Qualifiers (1) Diarrhea: Qualified Codes: R19.7 - Diarrhea, unspecified (2) Diabetes: Qualified Codes: E11.42 - Type 2 diabetes mellitus with diabetic polyneuropathy Otis Morales MD R2 August 24, 2017 9:58 pm
[2017-08-24 22:24] VITALS: BP 148/104; PULSE 85; RESP 18; O2SAT 100
[2017-08-24 22:39] VITALS: BP 174/83; PULSE 83; RESP 18; O2SAT 98
[2017-08-24] MEDS ORDERED: SODIUM CHLORIDE 0.9% FLUSH 10 ML FLUSH IV FLUSH PRN (22:45)
[2017-08-24] MEDS ORDERED: SENNOSIDES 8.6 MG TAB PO PRN (22:45)
[2017-08-24] MEDS ORDERED: LACTULOSE SYRUP 20 GM/30 ML CUP PO PRN (22:45)
[2017-08-24] MEDS ORDERED: NALOXONE HCL 0.4 MG/ML AMP IV PUSH PRN (22:45)
[2017-08-24] MEDS ORDERED: MAGNESIUM HYDROXIDE SUSP 30 ML CUP PO PRN (22:45)
[2017-08-24] MEDS ORDERED: BISACODYL 10 MG SUPP RECTAL PRN (22:45)
[2017-08-24 23:01] LABS: BACTERIA, URINE RARE /hpf; BILIRUBIN, URINE NEG (NEG); BLOOD, URINE NEG (NEG); GLUCOSE,URINE 150 mg/dL (NEG); KETONE, URINE NEG (NEG); NITRITE,URINE NEG (NEG); PH, URINE 6.5 (5.0-8.5); SQUAMOUS EPITHELIAL CELL URINE <1 /hpf (0-5); URINE COLOR YELLOW (YELLW/STRAW); URINE LEUKOCYTE ESTERASE NEG (NEG)
[2017-08-24] MEDS ORDERED: KETOROLAC TROMETHAMINE 60 MG/2 ML (IM) VIAL IM ONE (23:15)
[2017-08-24] MEDS ORDERED: DEXTROSE 50% IN WATER 50 ML VIAL(D50) IV PUSH PRN (23:30)
[2017-08-24] MEDS ORDERED: GLUCAGON 1 MG/ML VIAL OTHER PRN (23:30)
[2017-08-25] MEDS: SODIUM CHLOR 0.9% 1000 ML INJ 1,000 ML IV SCH ×4 (00:48→22:33)
[2017-08-25] MEDS: ENOXAPARIN SODIUM 40 MG/0.4 ML SYRINGE SQ SCH ×2 (00:48→23:21)
[2017-08-25] MEDS: ACETAMINOPHEN 325 MG TAB PO PRN ×3 (03:43→15:25)
[2017-08-25 03:44] LABS: AUTOMATED NEUTROPHIL # 7.8 TH/MM3 (1.8-7.7); BASOPHIL # 0.1 TH/MM3 (0-0.2); BASOPHIL % 0.7 % (0.0-2.0); EOSINOPHIL # 0.1 TH/MM3 (0-0.4); EOSINOPHIL % 0.5 % (0.0-4.0); HEMATOCRIT 35.8 % (35.0-46.0); HEMOGLOBIN 12.3 GM/DL (11.6-15.3); MEAN CELL VOLUME 103.6 FL (80.0-100.0); MEAN CORPUSCULAR HEMOGLOBIN 35.6 PG (27.0-34.0); MEAN CORPUSCULAR HGB CONC 34.3 % (32.0-36.0); MEAN PLATELET VOLUME 7.8 FL (7.0-11.0); MONO % 7.8 % (0.0-8.0); PLATELET COUNT 334 TH/MM3 (150-450); RED BLOOD COUNT 3.46 MIL/MM3 (4.00-5.30); RED CELL DISTRIBUTION WIDTH 16.7 % (11.6-17.2)
[2017-08-25] MEDS ORDERED: oxyCODONE/ACETAMINOPHEN 5 MG/325 MG TAB PO PRN (03:45)
[2017-08-25 04:16] LABS: ALBUMIN 3.8 GM/DL (3.4-5.0); ALKALINE PHOSPHATASE 22 U/L (45-117); ALT (GPT) 34 U/L (10-53); AST (GOT) 36 U/L (15-37); BICARBONATE 20.4 MEQ/L (21.0-32.0); BLOOD UREA NITROGEN 11 MG/DL (7-18); CALCIUM 8.2 MG/DL (8.5-10.1); CHLORIDE 113 MEQ/L (98-107); CREATININE 0.68 MG/DL (0.50-1.00); GLOMERULAR FILTRATION RATE 91 ML/MIN (>89); GLUCOSE,RANDOM 97 MG/DL (74-106); SODIUM (NA) 144 MEQ/L (136-145); TOTAL BILIRUBIN ADULT 0.5 MG/DL (0.2-1.0); TOTAL PROTEIN 6.7 GM/DL (6.4-8.2); TROPONIN I LESS THAN 0.02 NG/ML (0.02-0.05)
[2017-08-25 05:40] VITALS: BP 173/86; PULSE 78; RESP 18; TEMP 97.8; O2SAT 98
[2017-08-25] MEDS ORDERED: POTASSIUM CHLORIDE 25 MEQ EFFERVESCENT TAB PO ONE (06:00)
[2017-08-25 07:33] VITALS: BP 137/89; PULSE 77; RESP 16; TEMP 97.7; O2SAT 96
[2017-08-25] MEDS: INSULIN ASPART SUPPLEMENTAL SCALE SQ SCH ×4 (08:00→21:00)
[2017-08-25] MEDS: DOCUSATE SODIUM 50 MG/SENNA 8.6 MG TAB PO SCH ×2 (09:00→21:00)
[2017-08-25] MEDS: SODIUM CHLORIDE 0.9% FLUSH 10 ML FLUSH IV FLUSH SCH ×2 (09:00→21:00)
[2017-08-25] MEDS: CARVEDILOL 6.25 MG TAB PO SCH ×2 (09:18→23:22)
[2017-08-25] MEDS: PANTOPRAZOLE SOD 40 MG DELAYED RELEASE TAB PO SCH (09:19)
[2017-08-25] MEDS: FENOFIBRATE 145 MG TAB PO SCH (09:19)
[2017-08-25] MEDS: ASPIRIN 81 MG CHEW TAB CHEW SCH (09:19)
[2017-08-25] MEDS: FLUoxetine HCL 20 MG CAP PO SCH (09:19)
[2017-08-25] MEDS: CLOPIDOGREL 75 MG TAB PO SCH ×2 (09:19→23:23)
[2017-08-25] MEDS: LISINOPRIL 20 MG TAB PO SCH (09:19)
[2017-08-25] MEDS: RANOLAZINE 500 MG EXTENDED RELEASE TAB PO SCH ×2 (09:20→23:23)
[2017-08-25] MEDS: GABAPENTIN 300 MG CAP PO SCH ×4 (09:20→23:22)
--- NOTE | 2017-08-25 09:41 | EKG ---
Date Performed: 08/24/2017 Time Performed: 20:15:27 PTAGE: 52 years EKG: Normal Sinus rhythm Anterior ST depression, suggestive of ischemia, which is new from the old tracing. Clinical correlat ion is recommended. PREVIOUS TRACING : 10/23/2015 15.59 DOCTOR: Michi Singh Interpretating Date/Time 08/25/2017 09:40:29
[2017-08-25] MEDS ORDERED: MAGNESIUM SULFATE 1 GM PREMIX 100 ML IV ONE (11:15)
[2017-08-25 11:17] VITALS: BP 129/77; PULSE 75; RESP 16; TEMP 98.3; O2SAT 97
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
[2017-08-25 12:05] LABS: BACTERIA, URINE OCC /hpf; BILIRUBIN, URINE NEG (NEG); BLOOD, URINE LARGE (NEG); GLUCOSE,URINE 150 mg/dL (NEG); HYALINE CAST, URINE 18 /lpf (RARE); KETONE, URINE 10 mg/dL (NEG); MUCUS URINE FEW /lpf (OCC); NITRITE,URINE NEG (NEG); PH, URINE 5.5 (5.0-8.5); URINE COLOR LIGHT-RED (YELLW/STRAW); URINE LEUKOCYTE ESTERASE LARGE (NEG)
[2017-08-25] MEDS: carBAMazepine 200 MG TAB PO SCH ×2 (12:55→23:22)
--- NOTE | 2017-08-25 13:50 | PD.CONS ---
HPI History of Present Illness This is a 52 year old female who came to the hospital to be evaluated on 2017. Patient states that she has been fatigued, and has not been feeling well for at least 2 months. Patient states that she awakens in the morning and is immediately nauseated and does have some vomiting after drinking coffee. Patient patient also notes bloating, decreased appetite and lower crampy abdominal pain which typically is described as cramping in her lower abdomen onset also for approximately 2 months. Patient does note some watery diarrhea without any obvious blood or melena and states it is anywhere from 0-2 times a day. Aggregating factors to her GERD and diarrhea are spicy foods or fast food. Patient has been seen for a history of polyps at the [facility] with Dr. Dominguez, has had EGD and colonoscopy approximately 2 years ago, with findings of GERD, and probable history of colon polyps. Patient states that she has been taking her reflux medicine daily which does seem to help most of the time except for the breakthrough nausea in the mornings. Patient has no family history of colon cancer. Patient is a known diabetic with left AKA. According to the record patient has had some cardiovascular disease and workups but because of the small vessels treatment regimen has been conservative. Currently patient is on Plavix. Patient denies any recent use of antibiotics. (Melissa Ferraro) PFSH Past Medical History Diabetic Peripheral vascular disease Cardiovascular disease Gastroparesis Anxiety Hyperlipidemia Arthritis PA in 1999 GERD History of colon polyps patient states Per the record history of atrial flutter Past Surgical History Left AKA Cholecystectomy Abdominal hernia Hysterectomy (Melissa Ferraro) Coded Allergies: No Known Allergies (Unverified Allergy, Unknown, 08/24/17) Medications Administered Medications Medications (Trade) Dose Ordered Sig/Kristy Route PRN Reason Start Time Stop Time Status Last Admin Dose Admin Sodium Chloride 1,000 ml @ 125 mls/hr Q8H IV 08/24/17 22:33 08/25/17 09:17 Acetaminophen (Tylenol) 650 mg Q4H PRN PO PAIN 1-10 AND/OR FEVER >101F 08/24/17 22:45 08/25/17 08:34 Enoxaparin Sodium (Lovenox Inj) 40 mg Q24H SQ 08/25/17 00:00 08/25/17 00:48 Aspirin (Aspirin Chew) 81 mg DAILY CHEW 08/25/17 09:00 08/25/17 09:19 Carvedilol (Coreg) 12.5 mg BID PO 08/25/17 09:00 08/25/17 09:18 Clopidogrel Bisulfate (Plavix) 75 mg DAILY PO 08/25/17 09:00 08/25/17 09:19 Fenofibrate (Tricor) 145 mg DAILY PO 08/25/17 09:00 08/25/17 09:19 Gabapentin (Neurontin) 300 mg TID PO 08/25/17 09:00 08/25/17 12:55 Lisinopril (Prinivil) 20 mg DAILY PO 08/25/17 09:00 08/25/17 09:19 Pantoprazole Sodium (Protonix) 40 mg DAILY PO 08/25/17 09:00 08/25/17 09:19 Ranolazine (Ranexa) 1,000 mg BID PO 08/25/17 09:00 08/25/17 09:20 Ropinirole HCl (Requip) 1 mg BID PO 08/25/17 09:00 08/25/17 09:19 Insulin Aspart (NovoLOG SUPPLEMENTAL SCALE) 1 ACHS SLIDING SCALE SQ 08/25/17 08:00 08/25/17 12:55 Fluoxetine HCl (PROzac) 40 mg DAILY PO 08/25/17 09:00 08/25/17 09:19 Carbamazepine (TEGretol) 200 mg Q12HR PO 08/25/17 11:15 08/25/17 12:55 Family History No family history of colon cancer Social History Smoker half a pack a day Occasional marijuana use No alcohol (Melissa Ferraro) Review of Systems Constitutional: COMPLAINS OF: Fatigue, Change in appetite Gastrointestinal: COMPLAINS OF: Abdominal pain, Diarrhea, Nausea, Vomiting ( Melissa Ferraro) GI Exam Vitals I&O Vital Signs Date Time Temp Pulse Resp B/P (MAP) Pulse Ox O2 Delivery O2 Flow Rate FiO2 08/25/17 11:17 98.3 75 16 129/77 (94) 97 08/25/17 07:33 97.7 77 16 137/89 (105) 96 08/25/17 05:40 97.8 78 18 173/86 (115) 98 08/24/17 23:01 5/1/18 22:39 83 18 174/83 (113) 98 Room Air 08/24/17 22:24 85 18 148/104 (119) 100 Room Air 08/24/17 21:44 84 18 160/100 (120) 99 Room Air 08/24/17 20:17 100 Room Air 08/24/17 20:17 151/100 (117) 08/24/17 20:11 99 18 142/95 (111) 100 I/O 08/24/17 08/24/17 08/24/17 08/25/17 08/25/17 08/25/17 07:00 15:00 23:00 07:00 15:00 23:00 Intake Total 4000 ml 100 ml Output Total 500 ml Balance 3500 ml 100 ml Intake IV Total 4000 ml 100 ml Output Urine Total 500 ml Imaging Last Impressions Maxillofacial CT 08/24/172036 Signed Impressions: Service Date/Time: Thursday, August 24, 2017 20:59 - CONCLUSION: 1. No acute findings. Patient is edentulous. Costa Madden MD Chest X-Ray 08/24/172012 Signed Impressions: Service Date/Time: Thursday, August 24, 2017 20:35 - CONCLUSION: No acute disease. Costa Madden MD Laboratory Test 08/24/17 20:20 08/24/17 20:48 08/24/17 22:40 08/25/17 03:20 White Blood Count 12.2 TH/MM3 13.0 TH/MM3 Red Blood Count 4.45 MIL/MM3 3.46 MIL/MM3 Hemoglobin 15.4 GM/DL 12.3 GM/DL Hematocrit 45.8 % 35.8 % Mean Corpuscular Volume 102.8 FL 103.6 FL Mean Corpuscular Hemoglobin 34.5 PG 35.6 PG Mean Corpuscular Hemoglobin Concent 33.6 % 34.3 % Red Cell Distribution Width 16.6 % 16.7 % Platelet Count 483 TH/MM3 334 TH/MM3 Mean Platelet Volume 8.2 FL 7.8 FL Neutrophils (%) (Auto) 61.1 % 60.0 % Lymphocytes (%) (Auto) 30.7 % 31.0 % Monocytes (%) (Auto) 7.2 % 7.8 % Eosinophils (%) (Auto) 0.3 % 0.5 % Basophils (%) (Auto) 0.7 % 0.7 % Neutrophils # (Auto) 7.4 TH/MM3 7.8 TH/MM3 Lymphocytes # (Auto) 3.8 TH/MM3 4.0 TH/MM3 Monocytes # (Auto) 0.9 TH/MM3 1.0 TH/MM3 Eosinophils # (Auto) 0.0 TH/MM3 0.1 TH/MM3 Basophils # (Auto) 0.1 TH/MM3 0.1 TH/MM3 CBC Comment DIFF FINAL DIFF FINAL Differential Comment Erythrocyte Sedimentation Rate 4 mm/hr Prothrombin Time 10.7 SEC Prothromb Time International Ratio 1.1 RATIO Activated Partial Thromboplast Time 26.4 SEC D-Dimer Quantitative (PE/DVT) 0.24 MG/L FEU Blood Urea Nitrogen 10 MG/DL 11 MG/DL Creatinine 0.91 MG/DL 0.68 MG/DL Random Glucose 149 MG/DL 97 MG/DL Total Protein 8.7 GM/DL 6.7 GM/DL Albumin 4.7 GM/DL 3.8 GM/DL Calcium Level 10.2 MG/DL 8.2 MG/DL Magnesium Level 1.2 MG/DL Alkaline Phosphatase 29 U/L 22 U/L Aspartate Amino Transf (AST/SGOT) 48 U/L 36 U/L Alanine Aminotransferase (ALT/SGPT) 39 U/L 34 U/L Total Bilirubin 0.8 MG/DL 0.5 MG/DL Sodium Level 138 MEQ/L 144 MEQ/L Potassium Level 4.7 MEQ/L 3.5 MEQ/L Chloride Level 105 MEQ/L 113 MEQ/L Carbon Dioxide Level 20.4 MEQ/L 20.4 MEQ/L Anion Gap 13 MEQ/L 11 MEQ/L Estimat Glomerular Filtration Rate 65 ML/MIN 91 ML/MIN Total Creatine Kinase 86 U/L 48 U/L Troponin I LESS THAN 0.02 NG/ML LESS THAN 0.02 NG/ML C-Reactive Protein LESS THAN 0.29 MG/DL B-Type Natriuretic Peptide 139 PG/ML Lipase 285 U/L Thyroid Stimulating Hormone 3rd Gen 3.120 uIU/ML Lactic Acid Level 1.5 mmol/L Urine Color YELLOW Urine Turbidity CLEAR Urine pH 6.5 Urine Specific [place] 1.013 Urine Protein TRACE mg/dL Urine Glucose (UA) 150 mg/dL Urine Ketones NEG mg/dL Urine Occult Blood NEG Urine Nitrite NEG Urine Bilirubin NEG Urine Urobilinogen LESS THAN 2.0 MG/DL Urine Leukocyte Esterase NEG Urine RBC 2 /hpf Urine WBC 1 /hpf Urine Squamous Epithelial Cells <1 /hpf Urine Bacteria RARE /hpf Microscopic Urinalysis Comment CULT NOT INDICATED Adenovirus (PCR) NOT DETECTED Bordetella holmesii (PCR) NOT DETECTED Bordetella pertussis DNA (PCR) NOT DETECTED B. parapertussis/bronchi (PCR) NOT DETECTED Human Metapneumovirus (PCR) NOT DETECTED Influenza Type A (RT-PCR) NOT DETECTED Influenza Type A (H1) (PCR) NOT DETECTED Influenza Type A (H3) (PCR) NOT DETECTED Influenza Type B (RT-PCR) NOT DETECTED Parainfluenza Type 1 (PCR) NOT DETECTED Parainfluenza Type 2 (PCR) NOT DETECTED Parainfluenza Type 3 (PCR) NOT DETECTED Parainfluenza Type 4 (PCR) NOT DETECTED Resp Syncytial Virus Type A (PCR) NOT DETECTED Resp Syncytial Virus Type B (PCR) NOT DETECTED Rhinovirus (PCR) NOT DETECTED Test 08/25/17 11:15 Urine Color LIGHT-RED Urine Turbidity HAZY Urine pH 5.5 Urine Specific [place] 1.030 Urine Protein 100 mg/dL Urine Glucose (UA) 150 mg/dL Urine Ketones 10 mg/dL Urine Occult Blood LARGE Urine Nitrite NEG Urine Bilirubin NEG Urine Urobilinogen 2.0 MG/DL Urine Leukocyte Esterase LARGE Urine RBC 24 /hpf Urine WBC 35 /hpf Urine Bacteria OCC /hpf Urine Hyaline Casts 18 /lpf Urine Mucus FEW /lpf Microscopic Urinalysis Comment CATH-CULTURE IND Date/Time Source Procedure Growth Status 08/24/17 20:53 Blood Peripheral Aerobic Blood Culture - Preliminary NO GROWTH IN 1 DAY Resulted 08/24/17 20:53 Blood Peripheral Anaerobic Blood Culture - Preliminary NO GROWTH IN 1 DAY Resulted 08/24/17 22:40 Nasal Washing Influenza Types A,B Antigen (SHERRELL) - Final NEGATIVE FOR FLU A AND B ANTIGEN.... Complete 08/25/17 11:15 Urine Catheterized Urine Urine Culture Pending Received Physical Examination HEENT: Pupils round and reactive to light; normocephalic; atraumatic; no jaundice. Pale NECK: Neck is supple, no JVD, no lymphadenopathy. CHEST: Mild diminished bibasilar breath sounds CARDIAC: Regular rate and rhythm, distant ABDOMEN: Round, mild mid lower cramping and tenderness with light palpation soft , mild distention; no hepatosplenomegaly; bowel sounds are present in all four quadrants. EXTREMITIES: No clubbing, cyanosis, or edema. SKIN: Pale, normal; no rash; no jaundice. 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 Worse for the past couple of months Diarrhea, 0-2 times a day with dark liquid stools but denies any melena, no hematemesis, again notes crampy generalized lower abdominal pain. Onset of symptoms has been worse for the past few months, could be infectious versus viral. Noted in the record patient has cardiovascular disease and has had a history of atrial flutter, conservative treatment due to her microvascular system. Currently takes Plavix No family history of colon cancer possible history of polyps had her last EGD and colonoscopy approximately 2 years ago with at [facility] with Dr. Dominguez. History of GERD controlled most of the time with her daily PPI but does occasionally have some breakthrough dyspepsia. Aggregating factors fast foods greasy spicy foods Anemia which may be chronic in nature due to her chronic diseases. Hemoglobin 12.3 today, WBC count 13 which could explain a mild infectious process. Plan Diet ADA, will evaluate intake and output and appetite while in the hospital [facility] for abdominal cramping Reglan for trials with her gastroparesis Stool studies for C. difficile, pathogens and viral. Some of these tests have already been done which are coming back negative today. Upper GI series, Consider EGD and colonoscopy if stool studies negative. Patient is on Plavix and will need to be off of Plavix for 2-3 days, and okayed per cardiology/ attending. Further recommendations will be based on symptoms and findings of the current test Patient was seen per myself and Dr. Zavaleta, note was written on his behalf (Melissa Ferraro) Plan Patient was seen and examined, agree with above note, await for stool cultures, : EGD if symptoms continue (Payal Zavaleta MD) Problem Qualifiers (1) Diarrhea: Qualified Codes: R19.7 - Diarrhea, unspecified Melissa Ferraro August 25, 2017 13:50 Payal Zavaleta MD August 25, 2017 21:52
[2017-08-25 15:23] VITALS: BP 133/81; PULSE 69; RESP 16; TEMP 97.6; O2SAT 99
[2017-08-25 20:40] VITALS: BP 114/72; PULSE 71; RESP 16; TEMP 98.2; O2SAT 99
[2017-08-25] MEDS: ATORVASTATIN 40 MG TAB PO SCH (23:22)
[2017-08-25] MEDS: traZODone HCL 100 MG TAB PO SCH (23:23)
[2017-08-25 23:37] VITALS: BP 100/60; PULSE 67; RESP 16; TEMP 98; O2SAT 99
[2017-08-26 04:08] VITALS: BP 100/67; PULSE 68; RESP 17; TEMP 98.1; O2SAT 97
--- NOTE | 2017-08-26 07:36 | HHI.FPPN ---
Subjective Remarks Pt seen and examined this morning. No acute events overnight. Pt reports feeling significantly improved overall. She reports that pain of her left lower face is less frequent and less intense when it does occur. She denies chest pain , feeling short of breath. Abdominal pain is stable. She denies any additional acute concerns. (Maria Eugenia Adair MD R3) Objective Vitals Vital Signs Date Time Temp Pulse Resp B/P (MAP) Pulse Ox O2 Delivery O2 Flow Rate FiO2 08/26/17 04:08 98.1 68 17 100/67 (78) 97 08/25/17 23:37 98.0 67 16 100/60 (73) 99 08/25/17 20:40 98.2 71 16 114/72 (86) 99 08/25/17 15:23 97.6 69 16 133/81 (98) 99 08/25/17 11:17 98.3 75 16 129/77 (94) 97 I/O 08/25/17 08/25/17 08/25/17 08/26/17 08/26/17 08/26/17 07:00 15:00 23:00 07:00 15:00 23:00 Intake Total 100 ml 1982 ml 200 ml Output Total 250 ml Balance 100 ml 1732 ml 200 ml Intake Oral 200 ml IV Total 100 ml 1982 ml Output Urine Total 250 ml (Maria Eugenia Adair MD R3) Result Diagram: 08/25/17 0320 08/25/17 0320 Objective Remarks GENERAL: WDWN overweight female lying in bed, but not acutely distressed with a flat depressed affect SKIN: No rashes, ecchymoses or lesions. Cool and dry. HEAD: NC/AT EYES: PERRL. EOMI. No conjunctival injection or drainage. ENT: MMM, no pain or crepitus of TMJ with opening/closing of mouth. No gingival or oral lesions appreciated. Pt is edentulous, not wearing lower dentures. No tenderness of left lower face. NECK: Supple, non-tender CARDIOVASCULAR: NRRR. Normal S1/S2. No MRG RESPIRATORY: Normal rate and effort. CTAB. No crackles or wheezes. GASTROINTESTINAL: Abdomen soft, non-distended, diffuse mild tenderness. No hepato-splenomegaly or palpable masses.+BS MUSCULOSKELETAL: Extremities without clubbing, cyanosis, or edema. LLE s/p AKA, site c/d/i with no erythema, edema, or warmth. RLE with chronic clean ulcer over lateral malleolus. NEUROLOGICAL: Awake and alert. Cranial nerves II through XII grossly intact. Moves all extremities without difficulty. Normal speech. (Maria Eugenia Adair MD R3) A/P Assessment and Plan 52 yo female with PMH of DM with neuropathy, HTN, CAD presenting with: facial pain, chronic diarrhea, urinary retention. GI has been consulted, appreciate recommendations and intervention, anticipate EGD/Colonoscopy on 08/26. (Maria Eugenia Adair MD R3) Attending Attestation Patient seen and examined. Case reviewed and discussed with the resident team. Agree with plan of care as discussed with me and documented in the resident note. thankfully she is getting better with her trigeminal neuralgia. explained that this is a nerve problem and that the medicine can control it but she will need follow up with her primary Dr (Rita Sanders MD) Problem List: (1) Jaw pain ICD Codes: R68.84 - Jaw pain Status: Chronic Plan: Acute on chronic No evidence of dental abscess on exam or lab testing CT scan shows no acute process suspect trigeminal neuralgia Patient reports that pain has decreased in intensity and frequency since starting Tegretol -Tegretol 200 mg BID, consider increasing dose -Tylenol PRN pain thereafter -Follow clinically (2) Diarrhea ICD Codes: R19.7 - Diarrhea, unspecified Status: Acute Plan: Chronic, per review of EMR this has been ongoing for at least the past 6 months. May be related to medications versus celiac or lactose intolerance versus colitis versus others. ESR normal WBC slightly elevated, this has been a chronic issue as well Lactic acid reassuring -GI consulted, appreciate recommendations and intervention -Check C diff PCR, stool ova and parasites -Additional stool studies pending -UA abnormal, urine culture pending -See fluids below (3) Chest pain ICD Codes: R07.9 - Chest pain Status: Acute Plan: Has chronic angina, pain more epigastric by history Suspect GI etiology, see plan for diarrhea -Troponin negative x2 -Tylenol PRN -Continue home CAD meds (4) Urinary retention ICD Codes: R33.9 - Retention of urine, unspecified Status: Acute Plan: Will remove Dow catheter this morning -Continue to monitor urine output (5) Coronary artery disease ICD Codes: I25.10 - Atherosclerosis of coronary artery Status: Chronic Plan: With stable angina Continue home Ranexa, aspirin, plavix (6) Hypertension ICD Codes: I10 - Hypertension Status: Chronic Plan: Continue home Coreg, lisinopril (7) Diabetes ICD Codes: E11.9 - Type 2 diabetes mellitus without complications Status: Chronic Plan: Blood sugar on admission in good control -Continue home gabapentin for neuropathy -Hold metformin -Levemir 5 units BID -Low dose SSI -Accu-checks ACHS (8) Anxiety and depression ICD Codes: F41.8 - Mixed anxiety depressive disorder Status: Acute Plan: Stable Continue home Prozac Continue Trazodone HS (9) FEN/PPX Plan: Fluids: NS at 125 cc/hr Elecs: monitor and replete PRN Nutrition: Diet diabetic, pt NPO GI procedure DVT: Lovenox GI: Continue home protonix Code status: Full code Adv Dir: None in place, though patient states she does not want prolonged life support if it were to come to that. Dispo: pending work-up of diarrhea/diaphoresis (Maria Eugenia Adair MD R3) Problem Qualifiers (1) Diarrhea: Qualified Codes: R19.7 - Diarrhea, unspecified (2) Chest pain: Qualified Codes: I20.8 - Other forms of angina pectoris (3) Coronary artery disease: Qualified Codes: I25.118 - Atherosclerotic heart disease of [place] coronary artery with other forms of angina pectoris (4) Hypertension: Qualified Codes: I10 - Essential (primary) hypertension Maria Eugenia Adair MD R3 August 26, 2017 07:36 Rita Sanders MD August 27, 2017 11:25
[2017-08-26] MEDS: ACETAMINOPHEN 325 MG TAB PO PRN ×3 (07:39→21:07)
[2017-08-26 07:57] VITALS: BP 120/68; PULSE 65; RESP 16; TEMP 97.4; O2SAT 99
[2017-08-26] MEDS: INSULIN ASPART SUPPLEMENTAL SCALE SQ SCH ×4 (08:00→21:01)
[2017-08-26] MEDS: SODIUM CHLORIDE 0.9% FLUSH 10 ML FLUSH IV FLUSH SCH ×2 (09:00→21:00)
[2017-08-26 10:11] LABS: AUTOMATED NEUTROPHIL # 4.4 TH/MM3 (1.8-7.7); BASOPHIL % 0.4 % (0.0-2.0); EOSINOPHIL # 0.1 TH/MM3 (0-0.4); EOSINOPHIL % 0.7 % (0.0-4.0); HEMATOCRIT 31.8 % (35.0-46.0); HEMOGLOBIN 10.7 GM/DL (11.6-15.3); LYMPH % 44.8 % (9.0-44.0); MEAN CORPUSCULAR HEMOGLOBIN 35.1 PG (27.0-34.0); MEAN CORPUSCULAR HGB CONC 33.8 % (32.0-36.0); MEAN PLATELET VOLUME 7.7 FL (7.0-11.0); MONO % 5.3 % (0.0-8.0); MONOCYTE # 0.5 TH/MM3 (0-0.9); NEUT % 48.8 % (16.0-70.0); PLATELET COUNT 297 TH/MM3 (150-450); RED BLOOD COUNT 3.05 MIL/MM3 (4.00-5.30); RED CELL DISTRIBUTION WIDTH 16.1 % (11.6-17.2); WHITE BLOOD COUNT 8.9 TH/MM3 (4.0-11.0)
[2017-08-26 10:18] LABS: ALBUMIN 3.3 GM/DL (3.4-5.0); AST (GOT) 12 U/L (15-37); BICARBONATE 20.6 MEQ/L (21.0-32.0); BLOOD UREA NITROGEN 11 MG/DL (7-18); CALCIUM 8.1 MG/DL (8.5-10.1); CHLORIDE 117 MEQ/L (98-107); CREATININE 0.57 MG/DL (0.50-1.00); GLOMERULAR FILTRATION RATE 111 ML/MIN (>89); GLUCOSE,RANDOM 94 MG/DL (74-106); SODIUM (NA) 145 MEQ/L (136-145)
[2017-08-26 10:20] LABS: ALT (GPT) 21 U/L (10-53)
[2017-08-26 10:22] LABS: ALKALINE PHOSPHATASE 18 U/L (45-117); TOTAL BILIRUBIN ADULT 0.3 MG/DL (0.2-1.0); TOTAL PROTEIN 5.7 GM/DL (6.4-8.2)
[2017-08-26] MEDS: CARVEDILOL 6.25 MG TAB PO SCH ×2 (10:39→21:00)
[2017-08-26] MEDS: GABAPENTIN 300 MG CAP PO SCH ×2 (10:39→14:34)
[2017-08-26] MEDS: LISINOPRIL 20 MG TAB PO SCH (10:39)
[2017-08-26] MEDS: CLOPIDOGREL 75 MG TAB PO SCH (10:40)
[2017-08-26] MEDS: RANOLAZINE 500 MG EXTENDED RELEASE TAB PO SCH ×2 (10:40→21:01)
[2017-08-26] MEDS: carBAMazepine 200 MG TAB PO SCH ×2 (10:40→21:01)
[2017-08-26] MEDS: FLUoxetine HCL 20 MG CAP PO SCH (10:40)
[2017-08-26] MEDS: ASPIRIN 81 MG CHEW TAB CHEW SCH (10:40)
[2017-08-26] MEDS: PANTOPRAZOLE SOD 40 MG DELAYED RELEASE TAB PO SCH (10:41)
[2017-08-26] MEDS: DOCUSATE SODIUM 50 MG/SENNA 8.6 MG TAB PO SCH ×2 (10:41→21:00)
[2017-08-26] MEDS: FENOFIBRATE 145 MG TAB PO SCH (10:41)
[2017-08-26] MEDS: SODIUM CHLOR 0.9% 1000 ML INJ 1,000 ML IV SCH ×2 (10:41→14:35)
--- NOTE | 2017-08-26 11:06 | HHI.GIFU ---
Subjective Remarks Pt resting in bed Just returned from UGI series No stool has been sent yet, per RN pt has not had a BM Denies nausea, vomiting Complaining of diffuse abdominal pain (Imani Mckeon) Objective Vitals I&O Vital Signs Date Time Temp Pulse Resp B/P (MAP) Pulse Ox O2 Delivery O2 Flow Rate FiO2 08/26/17 07:57 97.4 65 16 120/68 (85) 99 08/26/17 04:08 98.1 68 17 100/67 (78) 97 08/25/17 23:37 98.0 67 16 100/60 (73) 99 08/25/17 20:40 98.2 71 16 114/72 (86) 99 08/25/17 15:23 97.6 69 16 133/81 (98) 99 08/25/17 11:17 98.3 75 16 129/77 (94) 97 I/O 08/25/17 08/25/17 08/25/17 08/26/17 08/26/17 08/26/17 07:00 15:00 23:00 07:00 15:00 23:00 Intake Total 100 ml 1982 ml 1981 ml 200 ml Output Total 250 ml 550 ml Balance 100 ml 1732 ml 1431 ml 200 ml Intake Oral 200 ml 200 ml IV Total 100 ml 1982 ml 1781 ml Output Urine Total 250 ml 550 ml Laboratory Laboratory Tests Test 08/25/17 11:15 08/26/17 09:18 Urine Color LIGHT-RED Urine Turbidity HAZY Urine pH 5.5 Urine Specific [place] 1.030 Urine Protein 100 Urine Glucose (UA) 150 Urine Ketones 10 Urine Occult Blood LARGE Urine Nitrite NEG Urine Bilirubin NEG Urine Urobilinogen 2.0 Urine Leukocyte Esterase LARGE Urine RBC 24 Urine WBC 35 Urine Bacteria OCC Urine Hyaline Casts 18 Urine Mucus FEW Microscopic Urinalysis Comment CATH-CULTURE IND White Blood Count 8.9 Red Blood Count 3.05 Hemoglobin 10.7 Hematocrit 31.8 Mean Corpuscular Volume 104.0 Mean Corpuscular Hemoglobin 35.1 Mean Corpuscular Hemoglobin Concent 33.8 Red Cell Distribution Width 16.1 Platelet Count 297 Mean Platelet Volume 7.7 Neutrophils (%) (Auto) 48.8 Lymphocytes (%) (Auto) 44.8 Monocytes (%) (Auto) 5.3 Eosinophils (%) (Auto) 0.7 Basophils (%) (Auto) 0.4 Neutrophils # (Auto) 4.4 Lymphocytes # (Auto) 4.0 Monocytes # (Auto) 0.5 Eosinophils # (Auto) 0.1 Basophils # (Auto) 0.0 CBC Comment DIFF FINAL Differential Comment Blood Urea Nitrogen 11 Creatinine 0.57 Random Glucose 94 Total Protein 5.7 Albumin 3.3 Calcium Level 8.1 Alkaline Phosphatase 18 Aspartate Amino Transf (AST/SGOT) 12 Alanine Aminotransferase (ALT/SGPT) 21 Total Bilirubin 0.3 Sodium Level 145 Potassium Level 3.8 Chloride Level 117 Carbon Dioxide Level 20.6 Anion Gap 7 Estimat Glomerular Filtration Rate 111 Date/Time Source Procedure Growth Status 08/24/17 20:53 Blood Peripheral Aerobic Blood Culture - Preliminary NO GROWTH IN 1 DAY Resulted 08/24/17 20:53 Blood Peripheral Anaerobic Blood Culture - Preliminary NO GROWTH IN 1 DAY Resulted 08/24/17 22:40 Nasal Washing Influenza Types A,B Antigen (SHERRELL) - Final NEGATIVE FOR FLU A AND B ANTIGEN.... Complete 08/25/17 11:15 Urine Catheterized Urine Urine Culture Pending Received Imaging Last Impressions Maxillofacial CT 08/24/172036 Signed Impressions: Service Date/Time: Thursday, August 24, 2017 20:59 - CONCLUSION: 1. No acute findings. Patient is edentulous. Costa Madden MD Chest X-Ray 08/24/172012 Signed Impressions: Service Date/Time: Thursday, August 24, 2017 20:35 - CONCLUSION: No acute disease. Costa Madden MD Physical Exam HEENT: Normocephalic; atraumatic CHEST: Even/unlabored CARDIAC: RRR ABDOMEN: Soft, nondistended, diffusely tender, bowel sounds active EXTREMITIES: No clubbing, cyanosis, or edema. SKIN: Normal; no rash; no jaundice. 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 (Imani Mckeon) Assessment and Plan Plan Assessment: - Diarrhea- states for the past couple months. Associated fecal urgency and incontinence. Denies any obvious blood in her stool. Last colonoscopy approx [address] Leal, states polyps found in exam and she states were positive? Unsure when recommended for follow up - Abdominal pain- Diffuse abdominal pain for the past couple months, tender to exam. - Nausea and vomiting- approx one episode of emesis every two weeks, states normally in the morning when she wakes up. Does not think she has ever had an EGD Denies ETOH. Admits to marijuana use and smokes 1/2 PPD of cigarettes - Gastroparesis- denies current or past medication for this. Probably secondary to DM. Complaints of early satiety and abdominal bloating. - Anemia- macrocytic- H/H trending down since admission Plan: EGD/colonoscopy tomorrow (Indication: EGD- nausea and vomiting in AM, reports of black stools at home, H/H trending down since admission Colonoscopy- Diarrhea with fecal urgency and incontinence as well as anemia) Obtain consent Clear liquids today Magnesium Citrate prep NPO after MN CT abdomen and pelvis W IV contrast to assess abdominal pain- unable to be done today due to retained Barium Stool studies Monitor H/H Transfuse as needed Serum B12 and Folate Of note, marijuana could be cause of nausea and vomiting Further recommendations based on findings of above and clinical course Pt has been seen and examined by myself and Dr. Zavaleta and this note is written on his behalf (Imani Mckeon) Plan Patient was seen and examined, agree with above note, plan on doing upper endoscopy and colonoscopy tomorrow, patient agreeable to have it done (Payal Zavaleta MD) Imani Mckeon August 26, 2017 11:05 Payal Zavaleta MD August 26, 2017 20:08
--- NOTE | 2017-08-26 11:18 | RADRPT ---
EXAM DATE/TIME: 08/26/2017 09:42 [facility] COMPARISON: No previous studies available for comparison. INDICATIONS : Vomiting, diarrhea FLUORO TIME: 2.0 minutes IMAGE COUNT: 21 CONTRAST: 1. Liquid E-Z Paque Barium Sulfate (60% w/v, 41% w.w) MEDICAL HISTORY : Chronic obstructive pulmonary disease. Cardiovascular disease. Hypertension. Diabetic SURGICAL HISTORY : Cholecystectomy. left above the knee amputation ENCOUNTER: Initial ACUITY: 3 weeks PAIN SCORE: 6/10 LOCATION: Bilateral abdomen FINDINGS: Preliminary film is unremarkable. Hemoclips from prior cholecystectomy. The patient swallowed bariu m through a straw. The GE junction is normal in appearance. The mucosal folds of the stomach are no rmal in thickness. The contrast remains in the stomach for over 2 minutes of intermittent fluorosco pic observation. It is at least 5 minutes before contrast is seen in the duodenum. No episodes of G E reflux. Overhead and fluoroscopic spot compression imaging demonstrates normal appearance to the stomach and duodenal folds. No evidence of ulcer or mass. CONCLUSION: 1. Delayed onset of gastric emptying. 2. No episodes of GE reflux. 3. Stomach and duodenal morphology is normal. Jv Wilkins MD on August 26, 2017 at 11:12 Board Certified Radiologist. This report was verified electronically.
[2017-08-26 12:10] VITALS: BP 134/78; PULSE 71; RESP 16; TEMP 97.4; O2SAT 100
[2017-08-26 12:30] LABS: FOLATE 3.1 NG/ML (3.1-17.5)
[2017-08-26] MEDS ORDERED: CHLORHEXIDINE GLUCONATE 2 % 1 PACK (2 CLOTHS) TOPICAL PRN (13:00)
[2017-08-26] MEDS ORDERED: SODIUM CHLORID 0.9% 500 ML IV PRN (13:00)
[2017-08-26] MEDS ORDERED: POVIDONE IODINE 5% (ANTISEPSIS KIT) 4 APPLICATIONS EACH NARE PRN (13:00)
[2017-08-26] MEDS ORDERED: LACTATED RINGER'S 1000 ML IV PRN (13:00)
[2017-08-26] MEDS ORDERED: METOPROLOL TARTRATE 25 MG TAB PO PRN (13:00)
[2017-08-26 15:31] VITALS: BP 124/77; PULSE 73; RESP 16; TEMP 97.6; O2SAT 99
[2017-08-26] MEDS ORDERED: MAGNESIUM CITRATE SOLN 300 ML BTL PO ONE ×2 (16:00→18:00)
[2017-08-26 20:03] VITALS: BP 143/81; PULSE 70; RESP 16; TEMP 98; O2SAT 100
[2017-08-26] MEDS: traZODone HCL 100 MG TAB PO SCH (21:00)
[2017-08-26] MEDS: ATORVASTATIN 40 MG TAB PO SCH (21:00)
[2017-08-26 22:51] VITALS: BP 122/80; PULSE 66; RESP 16; TEMP 98.1; O2SAT 100
[2017-08-27] VITALS (7 sets, daily range): BP systolic 112–148; BP diastolic 56–88; PULSE 60–71; RESP 16–20; TEMP 97.7–98.6; O2SAT 96–100
[2017-08-27] MEDS: SODIUM CHLOR 0.9% 1000 ML INJ 1,000 ML IV SCH ×4 (01:44→20:51)
[2017-08-27 05:49] LABS: AUTOMATED NEUTROPHIL # 2.9 TH/MM3 (1.8-7.7); BASOPHIL % 0.6 % (0.0-2.0); EOSINOPHIL # 0.1 TH/MM3 (0-0.4); EOSINOPHIL % 0.9 % (0.0-4.0); HEMATOCRIT 27.9 % (35.0-46.0); HEMOGLOBIN 9.6 GM/DL (11.6-15.3); LYMPH % 49.2 % (9.0-44.0); LYMPHOCYTE # 3.3 TH/MM3 (1.0-4.8); MEAN CELL VOLUME 102.6 FL (80.0-100.0); MEAN CORPUSCULAR HEMOGLOBIN 35.3 PG (27.0-34.0); MEAN CORPUSCULAR HGB CONC 34.4 % (32.0-36.0); MEAN PLATELET VOLUME 7.7 FL (7.0-11.0); MONO % 5.8 % (0.0-8.0); MONOCYTE # 0.4 TH/MM3 (0-0.9); NEUT % 43.5 % (16.0-70.0); PLATELET COUNT 276 TH/MM3 (150-450); RED BLOOD COUNT 2.72 MIL/MM3 (4.00-5.30); RED CELL DISTRIBUTION WIDTH 16.1 % (11.6-17.2); WHITE BLOOD COUNT 6.7 TH/MM3 (4.0-11.0)
[2017-08-27] MEDS: ACETAMINOPHEN 325 MG TAB PO PRN ×2 (06:12→21:20)
[2017-08-27 06:21] LABS: ALBUMIN 3.1 GM/DL (3.4-5.0); ALT (GPT) 19 U/L (10-53); AST (GOT) 14 U/L (15-37); BICARBONATE 24.3 MEQ/L (21.0-32.0); CHLORIDE 116 MEQ/L (98-107); CREATININE 0.47 MG/DL (0.50-1.00); GLOMERULAR FILTRATION RATE 139 ML/MIN (>89); GLUCOSE,RANDOM 75 MG/DL (74-106); SODIUM (NA) 148 MEQ/L (136-145)
[2017-08-27 06:28] LABS: ALKALINE PHOSPHATASE 20 U/L (45-117); BLOOD UREA NITROGEN 6 MG/DL (7-18); TOTAL BILIRUBIN ADULT 0.3 MG/DL (0.2-1.0); TOTAL PROTEIN 5.4 GM/DL (6.4-8.2)
[2017-08-27] MEDS: INSULIN ASPART SUPPLEMENTAL SCALE SQ SCH ×4 (08:00→20:33)
--- NOTE | 2017-08-27 08:40 | HHI.FPPN ---
Subjective Remarks Pt seen and examined this morning. She underwent bowel prep last night in anticipation of EGD and colonoscopy this morning. She reports that face pain has completely resolved and abdominal pain is also mildly improved. She reports feeling well overall. She denies chest pain, shortness of breath, lower extremity pain. (Maria Eugenia Adair MD R3) Objective Vitals Vital Signs Date Time Temp Pulse Resp B/P (MAP) Pulse Ox O2 Delivery O2 Flow Rate FiO2 08/27/17 07:59 98.2 66 20 133/88 (103) 97 08/27/17 07:25 20 08/27/17 04:05 98.0 66 16 126/65 (85) 99 08/26/17 22:51 98.1 66 16 122/80 (94) 100 08/26/17 20:03 98.0 70 16 143/81 (101) 100 08/26/17 15:31 97.6 73 16 124/77 (93) 99 08/26/17 12:10 97.4 71 16 134/78 (96) 100 I/O 08/26/17 08/26/17 08/26/17 08/27/17 08/27/17 08/27/17 07:00 15:00 23:00 07:00 15:00 23:00 Intake Total 1981 ml 200 ml Output Total 550 ml Balance 1431 ml 200 ml Intake Oral 200 ml 200 ml IV Total 1781 ml Output Urine Total 550 ml (Maria Eugenia Adair MD R3) Result Diagram: 08/27/17 0509 08/27/17 0509 Objective Remarks GENERAL: WDWN overweight female lying in bed, NAD. Depressed affect. SKIN: Mild rednes of dorsum of left hand, no erythema, no other significant ecchymoses. Cool and dry. HEAD: NC/AT EYES: PERRL. EOMI. No conjunctival injection or drainage. ENT: MMM, no pain or crepitus of TMJ with opening/closing of mouth. No gingival or oral lesions appreciated. Pt is edentulous, not wearing lower dentures. No tenderness of left lower face. NECK: Supple, non-tender CARDIOVASCULAR: NRRR. Normal S1/S2. No MRG RESPIRATORY: Normal rate and effort. CTAB. No crackles or wheezes. GASTROINTESTINAL: Abdomen soft, non-distended, mild tenderness of lower quadrants. No hepato-splenomegaly or palpable masses.+BS MUSCULOSKELETAL: Extremities without clubbing, cyanosis, or edema. LLE s/p AKA, site c/d/i with no erythema, edema, or warmth. RLE with chronic clean ulcer over lateral malleolus. NEUROLOGICAL: Awake and alert. Cranial nerves II through XII grossly intact. Moves all extremities without difficulty. Normal speech. (Maria Eugenia Adair MD R3) A/P Assessment and Plan 52 yo female with PMH of DM with neuropathy, HTN, CAD presenting with: facial pain, chronic diarrhea, urinary retention. GI has been consulted, appreciate recommendations and intervention, anticipate EGD/Colonoscopy on 08/26. Discharge Planning Anticipate discharge later today after patient has been cleared by GI. (Maria Eugenia Adair MD R3) Attending Attestation Patient seen and examined. Case reviewed and discussed with the resident team. Agree with plan of care as discussed with me and documented in the resident note. she is doing so well and excepting something horrible on colonoscopy should be ready for D/C (Rita Sanders MD) Problem List: (1) Trigeminal neuralgia of right side of face ICD Codes: G50.0 - Trigeminal neuralgia Plan: Acute on chronic No evidence of dental abscess on exam or lab testing CT scan shows no acute process suspect trigeminal neuralgia Patient reports that pain has decreased in intensity and frequency since starting Tegretol -Continue Tegretol 200 mg BID, patient doing well with current dose -Tylenol PRN pain thereafter -Follow clinically (2) Diarrhea ICD Codes: R19.7 - Diarrhea, unspecified Status: Acute Plan: Chronic, per review of EMR this has been ongoing for at least the past 6 months. May be related to medications versus celiac or lactose intolerance versus colitis versus others. ESR normal WBC slightly elevated, this has been a chronic issue as well Lactic acid reassuring -GI consulted, appreciate recommendations and intervention -Patient to undergo EGD and colonoscopy later today -Check C diff PCR, stool ova and parasites -Additional stool studies pending -UA abnormal, urine culture pending -See fluids below (3) Chest pain ICD Codes: R07.9 - Chest pain Status: Acute Plan: Has chronic angina, pain more epigastric by history Suspect GI etiology, see plan for diarrhea -Troponin negative x2 -Tylenol PRN -Continue home CAD meds (4) Coronary artery disease ICD Codes: I25.10 - Atherosclerosis of coronary artery Status: Chronic Plan: With stable angina Continue home Ranexa, aspirin, plavix (5) Hypertension ICD Codes: I10 - Hypertension Status: Chronic Plan: Continue home Coreg, lisinopril (6) Diabetes ICD Codes: E11.9 - Type 2 diabetes mellitus without complications Status: Chronic Plan: Blood sugar on admission in good control -Continue home gabapentin for neuropathy -Hold metformin -Levemir 5 units BID -Low dose SSI -Accu-checks ACHS (7) Anxiety and depression ICD Codes: F41.8 - Mixed anxiety depressive disorder Status: Acute Plan: Stable Continue home Prozac Continue Trazodone HS (8) FEN/PPX Plan: Fluids: NS at 125 cc/hr Elecs: monitor and replete PRN Nutrition: Diet diabetic, pt NPO for GI procedure DVT: Lovenox GI: Continue home protonix Code status: Full code Adv Dir: None in place, though patient states she does not want prolonged life support if it were to come to that. Dispo: pending work-up of diarrhea/diaphoresis (Maria Eugenia Adair MD R3) Problem Qualifiers (1) Diarrhea: Qualified Codes: R19.7 - Diarrhea, unspecified (2) Chest pain: Qualified Codes: I20.8 - Other forms of angina pectoris (3) Coronary artery disease: Qualified Codes: I25.118 - Atherosclerotic heart disease of hoh coronary artery with other forms of angina pectoris (4) Hypertension: Qualified Codes: I10 - Essential (primary) hypertension Maria Eugenia Adair MD R3 August 27, 2017 08:40 Rita Sanders MD August 28, 2017 12:12
[2017-08-27] MEDS ORDERED: POTASSIUM CHLORIDE 10 MEQ CONTROLLED RELEASE TAB PO ONE (09:00)
[2017-08-27] MEDS: DOCUSATE SODIUM 50 MG/SENNA 8.6 MG TAB PO SCH ×2 (09:00→20:33)
[2017-08-27] MEDS: SODIUM CHLORIDE 0.9% FLUSH 10 ML FLUSH IV FLUSH SCH ×2 (09:00→20:33)
[2017-08-27] MEDS: carBAMazepine 200 MG TAB PO SCH ×2 (09:55→20:50)
[2017-08-27] MEDS: CLOPIDOGREL 75 MG TAB PO SCH (09:55)
[2017-08-27] MEDS: ASPIRIN 81 MG CHEW TAB CHEW SCH (09:56)
[2017-08-27] MEDS: FENOFIBRATE 145 MG TAB PO SCH (09:56)
[2017-08-27] MEDS: CARVEDILOL 6.25 MG TAB PO SCH ×2 (09:56→20:48)
[2017-08-27] MEDS: RANOLAZINE 500 MG EXTENDED RELEASE TAB PO SCH ×2 (09:56→20:50)
[2017-08-27] MEDS: FLUoxetine HCL 20 MG CAP PO SCH (09:56)
[2017-08-27] MEDS: PANTOPRAZOLE SOD 40 MG DELAYED RELEASE TAB PO SCH (09:58)
[2017-08-27] MEDS: GABAPENTIN 300 MG CAP PO SCH ×3 (09:58→17:19)
[2017-08-27] MEDS: LISINOPRIL 20 MG TAB PO SCH (09:58)
[2017-08-27] MEDS ORDERED: CARB200T PO (11:02)
--- NOTE | 2017-08-27 11:03 | HHI.DCPOC ---
Discharge Care Plan Diagnosis: (1) Diarrhea (2) Trigeminal neuralgia of right side of face (3) Gastroparesis (4) Chest pain (5) Hypertension (6) Diabetes (7) Amputation of left lower extremity above knee upon examination Goals to Promote Your Health * To prevent worsening of your condition and complications * To maintain your health at the optimal level Directions to Meet Your Goals Take your medications as prescribed Follow your dietary instruction Follow activity as directed Keep your appointments as scheduled Take your immunizations and boosters as scheduled If your symptoms worsen call your PCP, if no PCP go to Urgent Care Center or Emergency Room Smoking is Dangerous to Your Health. Avoid second hand smoke Call the 24-hour hour crisis hotline for domestic abuse at Maria Eugenia Adair MD R3 August 27, 2017 11:03
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
[2017-08-27] MEDS ORDERED: hydrALAZINE HCL 20 MG/ML VIAL IV ONE (12:00)
[2017-08-27] MEDS ORDERED: PROPOFOL 200 MG/20 ML AMP IV ONE (12:00)
[2017-08-27] MEDS ORDERED: LIDOCAINE HCL 1% PF 5 ML SYRINGE OTHER ONE (12:00)
[2017-08-27] MEDS ORDERED: METOPROLOL TARTRATE 5 MG/5 ML VIAL IV ONE (12:00)
[2017-08-27] MEDS ORDERED: DO NOT ADM ANY ANTICOAGULANT DRUGS PRN (13:35)
--- NOTE | 2017-08-27 14:09 | PD.PROCEDR ---
GI Procedure PROCEDURE PERFORMED Upper endoscopy with biopsy Incomplete colonoscopy INDICATION FOR PROCEDURE Diarrhea Abdominal pain PROCEDURE: The procedure, risks and benefits were discussed with Ms. Velez and informed consent was obtained. Anesthesia sedated her with Diprivan. She was placed in the left lateral decubitus position. EGD: The Pentax videoscope was introduced through the oropharynx and advanced to the second portion of the duodenum under direct visualization. Retroflexion was performed in the stomach. Biopsy from the antrum Colonoscopy: Incomplete The Pentax videoscope was introduced through the rectum and advanced to sigmoid. Retroflexion was performed in the rectum. Colonic prep was poor FINDINGS: Esophagus normal Stomach moderate gastritis biopsy from the antrum Duodenum normal ESTIMATED BLOOD LOSS: None SPECIMENS REMOVED: And COMPLICATIONS: None PLAN: No NSAIDs Protonix 40 mg daily Repeat prep for colonoscopy in the morning Payal Zavaleta MD August 27, 2017 14:09
--- NOTE | 2017-08-27 14:13 | HHI.GIFU ---
Subjective Remarks Patient laying in bed, still having some abdominal pain and diarrhea, hemoglobin stable, she had upper endoscopy and incomplete colonoscopy today Objective Vitals I&O Vital Signs Date Time Temp Pulse Resp B/P (MAP) Pulse Ox O2 Delivery O2 Flow Rate FiO2 08/27/17 13:45 73 16 133/80 (97) 95 Room Air 08/27/17 13:30 98.0 78 16 126/75 (92) 100 Nasal Cannula 2 08/27/17 12:12 98.2 66 18 112/56 (74) 96 08/27/17 07:59 98.2 66 20 133/88 (103) 97 08/27/17 07:25 20 08/27/17 04:05 98.0 66 16 126/65 (85) 99 08/26/17 22:51 98.1 66 16 122/80 (94) 100 08/26/17 20:03 98.0 70 16 143/81 (101) 100 08/26/17 15:31 97.6 73 16 124/77 (93) 99 I/O 08/26/17 08/26/17 08/26/17 08/27/17 08/27/17 08/27/17 07:00 15:00 23:00 07:00 15:00 23:00 Intake Total 1981 ml 200 ml 40 ml Output Total 550 ml Balance 1431 ml 200 ml 40 ml Intake Oral 200 ml 200 ml IV Total 1781 ml TPN/PPN 40 ml Output Urine Total 550 ml Laboratory Laboratory Tests Test 08/26/17 20:53 08/27/17 05:09 Stool C. difficile Toxin (PCR) NEGATIVE Stl C. difficile Toxin Epiderm 027 PRESUMPTIVE NEGATIVE White Blood Count 6.7 Red Blood Count 2.72 Hemoglobin 9.6 Hematocrit 27.9 Mean Corpuscular Volume 102.6 Mean Corpuscular Hemoglobin 35.3 Mean Corpuscular Hemoglobin Concent 34.4 Red Cell Distribution Width 16.1 Platelet Count 276 Mean Platelet Volume 7.7 Neutrophils (%) (Auto) 43.5 Lymphocytes (%) (Auto) 49.2 Monocytes (%) (Auto) 5.8 Eosinophils (%) (Auto) 0.9 Basophils (%) (Auto) 0.6 Neutrophils # (Auto) 2.9 Lymphocytes # (Auto) 3.3 Monocytes # (Auto) 0.4 Eosinophils # (Auto) 0.1 Basophils # (Auto) 0.0 CBC Comment DIFF FINAL Differential Comment Blood Urea Nitrogen 6 Creatinine 0.47 Random Glucose 75 Total Protein 5.4 Albumin 3.1 Calcium Level 8.0 Alkaline Phosphatase 20 Aspartate Amino Transf (AST/SGOT) 14 Alanine Aminotransferase (ALT/SGPT) 19 Total Bilirubin 0.3 Sodium Level 148 Potassium Level 3.4 Chloride Level 116 Carbon Dioxide Level 24.3 Anion Gap 8 Estimat Glomerular Filtration Rate 139 Date/Time Source Procedure Growth Status 08/24/17 20:53 Blood Peripheral Aerobic Blood Culture - Preliminary NO GROWTH IN 3 DAYS Resulted 08/24/17 20:53 Blood Peripheral Anaerobic Blood Culture - Preliminary NO GROWTH IN 3 DAYS Resulted 08/26/17 20:53 Stool Stool Giardia Antigen (SHERRELL) Pending Received 08/24/17 22:40 Nasal Washing Influenza Types A,B Antigen (SHERRELL) - Final NEGATIVE FOR FLU A AND B ANTIGEN.... Complete 08/25/17 11:15 Urine Catheterized Urine Urine Culture - Final NO GROWTH IN 48 HOURS. Complete Physical Exam HEENT: Normocephalic; atraumatic CHEST: Even/unlabored CARDIAC: RRR ABDOMEN: Soft, nondistended, abdomen less tender, bowel sounds active EXTREMITIES: No clubbing, cyanosis, or edema. SKIN: Normal; no rash; no jaundice. [employer]: No focal deficits; alert and oriented times three. Assessment and Plan Assessment: (1) Diarrhea ICD Codes: R19.7 - Diarrhea, unspecified Status: Acute (2) Gastroesophageal reflux ICD Codes: K21.9 - Gastroesophageal reflux Status: Acute (3) Gastroparesis ICD Codes: K31.84 - Gastroparesis Status: Acute Plan Patient was seen and examined, patient still having some abdominal discomfort and diarrhea upper endoscopy and incomplete colonoscopy done FINDINGS: Esophagus normal Stomach moderate gastritis biopsy from the antrum Duodenum normal ESTIMATED BLOOD LOSS: None SPECIMENS REMOVED: And COMPLICATIONS: None PLAN: No NSAIDs Protonix 40 mg daily Repeat prep for colonoscopy in the morning Problem Qualifiers (1) Diarrhea: Qualified Codes: R19.7 - Diarrhea, unspecified Payal Zavaleta MD August 27, 2017 14:13
[2017-08-27] MEDS ORDERED: PEG (High)/E-LYTE SOLN 4000 ML BTL PO ONE (16:00)
[2017-08-27] MEDS: traZODone HCL 100 MG TAB PO SCH (20:49)
[2017-08-27] MEDS: ATORVASTATIN 40 MG TAB PO SCH (20:49)
[2017-08-27] MEDS: ENOXAPARIN SODIUM 40 MG/0.4 ML SYRINGE SQ SCH ×2 (22:50)
[2017-08-28] MEDS ORDERED: WITCH HAZEL 50%/GLYCERIN 12.5% 40 PAD JAR TOPICAL PRN (01:15)
[2017-08-28] MEDS ORDERED: traMADol HCL 50 MG TAB PO ONE (01:15)
[2017-08-28 03:40] VITALS: BP 138/88; PULSE 71; RESP 16; TEMP 97.7; O2SAT 97
[2017-08-28] MEDS: ACETAMINOPHEN 325 MG TAB PO PRN ×2 (05:18→15:25)
[2017-08-28] MEDS: SODIUM CHLOR 0.9% 1000 ML INJ 1,000 ML IV SCH ×4 (05:18→21:39)
--- NOTE | 2017-08-28 07:14 | HHI.FPPN ---
Subjective Remarks Patient seen and examined this morning. Afebrile vital signs stable. Patient did not have an adequate bowel prep prior to yesterday's colonoscopy, she reports that she did her best to drink the bowel prep throughout the night and is hopeful that today's colonoscopy will go smoothly. Pending results of the colonoscopy and clearance by GI patient could possibly go home later today. She is hopeful for discharge today. She denies any chest pain or shortness of breath. She is admitting to still having some mild left lower quadrant abdominal pain. Denies any nausea vomiting or diarrhea. (Khari Mansfield MD R3) Objective Vitals Vital Signs Date Time Temp Pulse Resp B/P (MAP) Pulse Ox O2 Delivery O2 Flow Rate FiO2 08/28/17 03:40 97.7 71 16 138/88 (105) 97 08/27/17 23:50 97.7 60 16 133/77 (95) 100 08/27/17 20:53 71 16 99 08/27/17 19:39 98.0 68 16 148/87 (107) 100 08/27/17 16:23 98.6 66 18 112/58 (76) 96 08/27/17 14:16 98.1 76 18 96 Room Air 08/27/17 14:00 70 16 143/85 (104) 96 Room Air 08/27/17 13:45 73 16 133/80 (97) 95 Room Air 08/27/17 13:30 98.0 78 16 126/75 (92) 100 Nasal Cannula 2 08/27/17 12:12 98.2 66 18 112/56 (74) 96 08/27/17 07:59 98.2 66 20 133/88 (103) 97 08/27/17 07:25 20 I/O 08/27/17 08/27/17 08/27/17 08/28/17 08/28/17 08/28/17 07:00 15:00 23:00 07:00 15:00 23:00 Intake Total 140 ml 4000 ml Balance 140 ml 4000 ml Intake Oral 3000 ml IV Total 1000 ml TPN/PPN 40 ml Other 100 ml # Bowel Movements 10 (Khari Mansfield MD R3) Result Diagram: 08/27/17 0509 08/27/17 0509 Imaging Last Impressions Upper GI Series 08/26/17 0000 Signed Impressions: Service Date/Time: August 09:42 - CONCLUSION: 1. Delayed onset of gastric emptying. 2. No episodes of GE reflux. 3. Stomach and duodenal morphology is normal. Jv Wilkins MD Maxillofacial CT 08/24/172036 Signed Impressions: Service Date/Time: Thursday, August 24, 2017 20:59 - CONCLUSION: 1. No acute findings. Patient is edentulous. Costa Madden MD Chest X-Ray 08/24/172012 Signed Impressions: Service Date/Time: Thursday, August 24, 2017 20:35 - CONCLUSION: No acute disease. Costa Madden MD Objective Remarks GENERAL: WDWN overweight female lying in bed, NAD. SKIN: Mild redness of dorsum of left hand, no erythema, no other significant ecchymoses. Cool and dry. HEAD: NC/AT EYES: PERRL. EOMI. No conjunctival injection or drainage. ENT: MMM, no pain or crepitus of TMJ with opening/closing of mouth. No gingival or oral lesions appreciated. Pt is edentulous, not wearing lower dentures. No tenderness of left lower face. NECK: Supple, non-tender CARDIOVASCULAR: NRRR. Normal S1/S2. No MRG RESPIRATORY: Normal rate and effort. CTAB. No crackles or wheezes. GASTROINTESTINAL: Abdomen soft, non-distended, mild tenderness of lower quadrants. No hepato-splenomegaly or palpable masses.+BS MUSCULOSKELETAL: Extremities without clubbing, cyanosis, or edema. LLE s/p AKA, site c/d/i with no erythema, edema, or warmth. RLE with chronic clean ulcer over lateral malleolus. NEUROLOGICAL: Awake and alert. Cranial nerves II through XII grossly intact. Moves all extremities without difficulty. Normal speech. Procedures EGD and colonoscopy on 08/27/17 Medications and IVs Current Medications Medications (Trade) Dose Ordered Sig/Kristy Route Start Time Stop Time Status Last Admin Sodium Chloride 1,000 ml @ 125 mls/hr Q8H IV 08/24/17 22:33 08/27/17 20:51 (NS Flush) 2 ml UNSCH PRN IV FLUSH 08/24/17 22:45 (NS Flush) 2 ml BID IV FLUSH 08/25/17 09:00 (Tylenol) 650 mg Q4H PRN PO 08/24/17 22:45 08/28/17 05:18 (Lovenox Inj) 40 mg Q24H SQ 08/25/17 00:00 08/25/17 23:21 (Narcan Inj) 0.4 mg UNSCH PRN IV PUSH 08/24/17 22:45 (Katrina-Colace) 1 tab BID PO 08/25/17 09:00 08/26/17 21:00 (Milk Of Magnesia Liq) 30 ml Q12H PRN PO 08/24/17 22:45 (Senokot) 17.2 mg Q12H PRN PO 08/24/17 22:45 (Dulcolax Supp) 10 mg DAILY PRN RECTAL 08/24/17 22:45 (Lactulose Liq) 30 ml DAILY PRN PO 08/24/17 22:45 (Aspirin Chew) 81 mg DAILY CHEW 08/25/17 09:00 08/27/17 09:56 (Lipitor) 40 mg HS PO 08/25/17 21:00 08/27/17 20:49 (Coreg) 12.5 mg BID PO 08/25/17 09:00 08/27/17 20:48 (Plavix) 75 mg DAILY PO 08/25/17 09:00 08/27/17 09:55 (Tricor) 145 mg DAILY PO 08/25/17 09:00 08/27/17 09:56 (Neurontin) 300 mg TID PO 08/25/17 09:00 08/27/17 17:19 (Prinivil) 20 mg DAILY PO 08/25/17 09:00 08/27/17 09:58 (Protonix) 40 mg DAILY PO 08/25/17 09:00 08/27/17 09:58 (Ranexa) 1,000 mg BID PO 08/25/17 09:00 08/27/17 20:50 (Requip) 1 mg BID PO 08/25/17 09:00 08/27/17 20:50 (Desyrel) 150 mg HS PO 08/25/17 21:00 08/27/17 20:49 (D50w (Vial) Inj) 50 ml UNSCH PRN IV PUSH 08/24/17 23:30 (Glucagon Inj) 1 mg UNSCH PRN OTHER 08/24/17 23:30 (NovoLOG SUPPLEMENTAL SCALE) 1 ACHS SLIDING SCALE SQ 08/25/17 08:00 08/26/17 21:01 (PROzac) 40 mg DAILY PO 08/25/17 09:00 08/27/17 09:56 (TEGretol) 200 mg Q12HR PO 08/25/17 11:15 08/27/17 20:50 Lactated Ringer's 1,000 ml @ 30 mls/hr Q24H PRN IV 08/26/17 13:00 08/29/17 12:59 08/27/17 12:15 Sodium Chloride 500 ml @ 30 mls/hr [id number] PRN IV 08/26/17 13:00 08/29/17 12:59 (Lopressor) 25 mg [employer] PRN PO 08/26/17 13:00 08/29/17 12:59 (Betadine 5% Antisepsis Kit) 1 applic [employer] PRN EACH NARE 08/26/17 13:00 08/29/17 12:59 (Chlorhexidine 2% Cloth) 3 pack [employer] PRN TOPICAL 08/26/17 13:00 08/29/17 12:59 ([facility] [place] [facility] ALL NURSING DEPARTME... UNSCH PRN .XX 08/27/17 13:35 08/28/17 13:34 (Tucks Pads) 1 applic UNSCH PRN TOPICAL 08/28/17 01:15 08/28/17 05:18 (Khari Mansfield MD R3) A/P Assessment and Plan 52 yo female with PMH of DM with neuropathy, HTN, CAD presenting with: facial pain, chronic diarrhea, urinary retention. GI has been consulted, appreciate recommendations and intervention, status post EGD/Colonoscopy, and adequate bowel prep for the colonoscopy plans for repeat colonoscopy today. Discharge Planning Anticipate discharge later today after patient has been cleared by GI. (Khari Mansfield MD R3) Attending Attestation Patient seen and examined. Case reviewed and discussed with the resident team. Agree with plan of care as discussed with me and documented in the resident note. should be able to go to her brothers house later today (Rita Sanders MD) Problem List: (1) Diarrhea ICD Codes: R19.7 - Diarrhea, unspecified Status: Acute Plan: Chronic, per review of EMR this has been ongoing for at least the past 6 months. May be related to medications versus celiac or lactose intolerance versus colitis versus others. ESR normal WBC slightly elevated, this has been a chronic issue as well Lactic acid reassuring -GI consulted, appreciate recommendations and intervention -Patient to undergo repeat colonoscopy due to poor bowel prep -Status post endoscopy -Check C diff PCR, stool ova and parasites -Additional stool studies pending -UA abnormal, urine culture: No growth to date 48 -See fluids below (2) Trigeminal neuralgia of right side of face ICD Codes: G50.0 - Trigeminal neuralgia Plan: Acute on chronic No evidence of dental abscess on exam or lab testing CT scan shows no acute process suspect trigeminal neuralgia Patient reports that pain has decreased in intensity and frequency since starting Tegretol -Continue Tegretol 200 mg BID, patient doing well with current dose -Tylenol PRN pain thereafter -Follow clinically (3) Chest pain ICD Codes: R07.9 - Chest pain Status: Acute Plan: Has chronic angina, pain more epigastric by history Suspect GI etiology, see plan for diarrhea -Troponin negative x2 -Tylenol PRN -Continue home CAD meds (4) Coronary artery disease ICD Codes: I25.10 - Atherosclerosis of coronary artery Status: Chronic Plan: With stable angina Continue home Ranexa, aspirin, plavix (5) Hypertension ICD Codes: I10 - Hypertension Status: Chronic Plan: Continue home Coreg, lisinopril (6) Diabetes ICD Codes: E11.9 - Type 2 diabetes mellitus without complications Status: Chronic Plan: Blood sugar on admission in good control -Continue home gabapentin for neuropathy -Hold metformin -Levemir 5 units BID -Low dose SSI -Accu-checks ACHS (7) Anxiety and depression ICD Codes: F41.8 - Mixed anxiety depressive disorder Status: Acute Plan: Stable Continue home Prozac Continue Trazodone HS (8) FEN/PPX Plan: Fluids: NS at 125 cc/hr Elecs: monitor and replete PRN Nutrition: Diet diabetic, pt NPO for GI procedure DVT: Lovenox GI: Continue home protonix Code status: Full code Adv Dir: None in place, though patient states she does not want prolonged life support if it were to come to that. Dispo: pending work-up of diarrhea/diaphoresis (Khari Mansfield MD R3) Problem Qualifiers (1) Diarrhea: Qualified Codes: R19.7 - Diarrhea, unspecified (2) Chest pain: Qualified Codes: I20.8 - Other forms of angina pectoris (3) Coronary artery disease: Qualified Codes: I25.118 - Atherosclerotic heart disease of [place] coronary artery with other forms of angina pectoris (4) Hypertension: Qualified Codes: I10 - Essential (primary) hypertension Khari Mansfield MD R3 August 28, 2017 07:13 Rita Sanders MD August 28, 2017 12:12
[2017-08-28 07:23] VITALS: BP 158/79; PULSE 63; RESP 18; TEMP 97.4; O2SAT 98
[2017-08-28] MEDS: INSULIN ASPART SUPPLEMENTAL SCALE SQ SCH ×4 (08:00→21:36)
[2017-08-28] MEDS: RANOLAZINE 500 MG EXTENDED RELEASE TAB PO SCH ×2 (08:47→20:11)
[2017-08-28] MEDS: LISINOPRIL 20 MG TAB PO SCH (08:48)
[2017-08-28] MEDS: CARVEDILOL 6.25 MG TAB PO SCH ×2 (08:48→20:14)
[2017-08-28] MEDS: FLUoxetine HCL 20 MG CAP PO SCH (08:48)
[2017-08-28] MEDS: FENOFIBRATE 145 MG TAB PO SCH (08:49)
[2017-08-28] MEDS: ASPIRIN 81 MG CHEW TAB CHEW SCH (08:49)
[2017-08-28] MEDS: DOCUSATE SODIUM 50 MG/SENNA 8.6 MG TAB PO SCH ×2 (08:50→20:12)
[2017-08-28] MEDS: GABAPENTIN 300 MG CAP PO SCH ×3 (08:50→18:43)
[2017-08-28] MEDS: PANTOPRAZOLE SOD 40 MG DELAYED RELEASE TAB PO SCH (08:50)
[2017-08-28] MEDS: carBAMazepine 200 MG TAB PO SCH ×2 (08:50→20:12)
[2017-08-28] MEDS: SODIUM CHLORIDE 0.9% FLUSH 10 ML FLUSH IV FLUSH SCH ×2 (08:51→20:14)
[2017-08-28 11:13] VITALS: BP 160/81; PULSE 60; RESP 18; TEMP 97.8; O2SAT 97
[2017-08-28 14:55] VITALS: BP 118/72; PULSE 78; RESP 22; TEMP 98.7; O2SAT 98
--- NOTE | 2017-08-28 17:57 | HHI.GIFU ---
GI Follow-up Note Consult Follow-up Subjective: Patient laying in bed comfortably, still complaining of abdominal pain in lower abdomen, diarrhea.Had incomplete colonoscopy yesterdaygas, scheduled for colon today.No nausea , vomiting, gi bleeding Objective: PHYSICAL EXAMINATION: Vitals signs stable No fever Vital Signs Date Time Temp Pulse Resp B/P (MAP) Pulse Ox O2 Delivery O2 Flow Rate FiO2 08/29/17 03:54 98.8 73 16 140/75 (96) 96 08/29/17 00:28 97.6 67 18 138/73 (94) 97 HEENT: Pupils round and reactive to light; normocephalic; atraumatic; no jaundice. Throat is clear. NECK: Neck is supple, no JVD, no lymphadenopathy. CHEST: Chest is clear to auscultation and percussion. CARDIAC: Regular rate and rhythm with no murmur gallop or rubs. ABDOMEN: Soft, nondistended, nontender; no hepatosplenomegaly; bowel sounds are present in all four quadrants. EXTREMITIES: No clubbing, cyanosis, or edema, lt bka SKIN: Normal; no rash; no jaundice. THREAD GRINDER: No focal deficits; alert and oriented times three. Available Data (labs, X- Rays, Procedues) : ASSESSMENT/PLAN: Abdominal pain, diarrhea -needs colonoscopy gastritis continue current regimen gastroparesis mild anemia Recommendations : colonoscopy scheduled today, or very busy we will reschedule for am clear liquid today colon in am cta abdomen-r/o mesenteric ischemia It was a pleasure seeing Arleth Velez. Thank you for this consult. Entered by: Bridget Vela MD August 28, 2017 17:57
[2017-08-28 19:52] VITALS: BP 184/91; PULSE 60; RESP 16; TEMP 98.4; O2SAT 99
[2017-08-28] MEDS: ATORVASTATIN 40 MG TAB PO SCH (20:11)
[2017-08-28] MEDS: traZODone HCL 100 MG TAB PO SCH (20:13)
[2017-08-29] MEDS: ENOXAPARIN SODIUM 40 MG/0.4 ML SYRINGE SQ SCH (00:10)
[2017-08-29 00:28] VITALS: BP 138/73; PULSE 67; RESP 18; TEMP 97.6; O2SAT 97
[2017-08-29 03:54] VITALS: BP 140/75; PULSE 73; RESP 16; TEMP 98.8; O2SAT 96
[2017-08-29] MEDS: ACETAMINOPHEN 325 MG TAB PO PRN ×3 (05:00→23:34)
[2017-08-29] MEDS: SODIUM CHLOR 0.9% 1000 ML INJ 1,000 ML IV SCH (05:28)
[2017-08-29] MEDS: INSULIN ASPART SUPPLEMENTAL SCALE SQ SCH ×4 (08:00→20:09)
[2017-08-29 08:19] VITALS: BP 138/84; PULSE 74; RESP 20; TEMP 98.2; O2SAT 96
--- NOTE | 2017-08-29 09:10 | HHI.FPPN ---
Subjective Remarks Mrs. Velez was afebrile with stable vital signs overnight. Patient reports that she continues to feel abdominal pain, left shoulder pain, and jaw pain. Patient also reports chest pain; she says that she gets this frequently and takes Nitroglycerin for chest pain. Patient does not have nausea but states that this is due to not eating. Patient has had continued diarrhea. Patient reports normal breathing and urination. Per nursing staff, patient is about to go for CTA of A/P and later go for colonoscopy. (Patrick Watkins MD R3) Objective Vitals Vital Signs Date Time Temp Pulse Resp B/P (MAP) Pulse Ox O2 Delivery O2 Flow Rate FiO2 08/29/17 08:19 98.2 74 20 138/84 (102) 96 08/29/17 03:54 98.8 73 16 140/75 (96) 96 08/29/17 00:28 97.6 67 18 138/73 (94) 97 08/28/17 19:52 98.4 60 16 184/91 (122) 99 08/28/17 16:42 18 08/28/17 14:55 98.7 78 22 118/72 (87) 98 08/28/17 11:13 97.8 60 18 160/81 (107) 97 I/O 08/28/17 08/28/17 08/28/17 08/29/17 08/29/17 08/29/17 07:00 15:00 23:00 07:00 15:00 23:00 Intake Total 4000 ml 20 ml Balance 4000 ml 20 ml Intake Oral 3000 ml IV Total 1000 ml TPN/PPN 20 ml # Voids 6 # Bowel Movements 10 2 (Patrick Watkins MD R3) Result Diagram: 08/29/1730 08/29/1730 Imaging Last Impressions Upper GI Series 08/26/17 0000 Signed Impressions: Service Date/Time: August 09:42 - CONCLUSION: 1. Delayed onset of gastric emptying. 2. No episodes of GE reflux. 3. Stomach and duodenal morphology is normal. Jv Wilkins MD Maxillofacial CT 08/24/172036 Signed Impressions: Service Date/Time: Thursday, August 24, 2017 20:59 - CONCLUSION: 1. No acute findings. Patient is edentulous. Costa Madden MD Chest X-Ray 08/24/172012 Signed Impressions: Service Date/Time: Thursday, August 24, 2017 20:35 - CONCLUSION: No acute disease. Costa Madden MD Objective Remarks GENERAL: NAD. SKIN: No visible rashes or lesions. EYES: EOM grossly I. ENT: MMM, no pain or crepitus of TMJ with opening/closing of mouth. Patient demonstrates that pain is more mid jaw than by TMJ. Mouth/gums examined around location of pain without any erythema or swelling NECK: Supple, non-tender, no lymphadenopathy CARDIOVASCULAR: NRRR. Normal S1/S2. No MRG. No LE edema RESPIRATORY: Normal rate and effort. CTAB. No crackles or wheezes. GASTROINTESTINAL: Abdomen soft, non-distended. Reported mild pain; no guarding or wincing to palpation of any quadrant on exam. Normal bowel signs. No appreciated hepatomegaly or palpated masses MUSCULOSKELETAL: Extremities without edema. LLE s/p AKA, site c/d/i with no erythema, edema, or warmth. RLE lateral malleolus ulcer not inspected today NEUROLOGICAL: Awake and alert. Cranial nerves grossly intact. Moves all extremities without difficulty. Normal speech. Procedures EGD 08/27/17 (Patrick Watkins MD R3) A/P Assessment and Plan 52 yo female with PMH of DM with neuropathy, HTN, CAD presenting with: facial pain, chronic diarrhea, urinary retention. GI has been consulted, appreciate recommendations and intervention, status post EGD/Colonoscopy, and adequate bowel prep for the colonoscopy plans for repeat colonoscopy today. Discharge Planning Awaiting CTA and colonoscopy; Hgb downtrending (Patrick Watkins MD R3) Attending Attestation Patient seen and examined. Case reviewed and discussed with the resident team. Agree with plan of care as discussed with me and documented in the resident note. she has reported that she was going to pain management regularly and was on regular narcotics for many years. she is still very upset about not being on "enough" pain meds. she initially only complained about her jaw pain from trigeminal neuralgia which was gone completely by the second day of Tegretol. when she stopped complaining about pain and stopped getting narcotics she suddenly developed more pain in more places. she complained about abdominal pain which had improved greatly but suddenly became more of a concern. she also had not complained of any chest pain in days but began having more pain though she states this is normal for her. now she has new jaw pain and wants more medicine for this she reported today that she cannot have bypass surgery because "my veins are too small" and she has "nonstentable" CAD per pt. She has not had a difference in her pattern or intensity of chest pain recently but did state that her chest pain may have become worse over the past 2 years slowly and gradually. She is still reluctant to leave the hospital as she "has no transportation". we discussed that there is medical transport if they are called ahead of time. she was encouraged to see her primary care Dr as well as her [employer] and GI. (Rita Sanders MD) Problem List: (1) Diarrhea ICD Codes: R19.7 - Diarrhea, unspecified Status: Acute Plan: Impression: Chronic, per review of EMR this has been ongoing for at least the past 6 months. May be related to medications versus celiac or lactose intolerance versus colitis versus others. ESR normal WBC slightly elevated, this has been a chronic issue as well CMP- wnl UA abnormal, urine culture: No growth to date 48 Lactic acid reassuring Associated with Hgb 15.4 (admission) -> 9.6 (08/27) Cdiff PCR, stool ova/parasites negative Viral antigen panel negative EGD- gastritis -GI consulted, appreciate recommendations and intervention -Colonoscopy planned for today -CTA abdomen pending -Status post endoscopy -Protonix 40mg daily -See fluids below (2) Chest pain ICD Codes: R07.9 - Chest pain Status: Acute Plan: 08/29- reported chest pain. Impression: Has chronic angina; takes Nitroglycerin at home Troponin negative x2 on admission EKG on admission with ST depression new from 2016; QT prolongation -Will repeat EKG, troponin -Continue home Carvedilol, Lisinopril, ASA 81mg, Plavix (has not received since 08/27 for planned colonoscopy) (3) Coronary artery disease ICD Codes: I25.10 - Atherosclerosis of coronary artery Status: Chronic Plan: With stable angina Continue home Ranexa, aspirin, plavix, BB, JOSE ALEJANDRO (4) Trigeminal neuralgia of right side of face ICD Codes: G50.0 - Trigeminal neuralgia Plan: Acute on chronic No evidence of dental abscess on exam or lab testing CT scan shows no acute process suspect trigeminal neuralgia Patient reports that pain has decreased in intensity and frequency since starting Tegretol -Continue Tegretol 200 mg BID -Tylenol PRN pain thereafter -Follow clinically (5) Hypertension ICD Codes: I10 - Hypertension Status: Chronic Plan: Continue home Coreg, lisinopril (6) Diabetes ICD Codes: E11.9 - Type 2 diabetes mellitus without complications Status: Chronic Plan: Blood sugar on admission in good control -Continue home gabapentin for neuropathy -Hold metformin -Levemir 5 units BID -Low dose SSI -Accu-checks ACHS (7) Anxiety and depression ICD Codes: F41.8 - Mixed anxiety depressive disorder Status: Acute Plan: Stable Continue home Prozac will hold Trazodone HS since QT prolonged on recent EKG (8) FEN/PPX Plan: Fluids: NS at 125 cc/hr Elecs: monitor and replete PRN Nutrition: Diet diabetic, pt NPO for GI procedure DVT: Lovenox GI: Continue home protonix Code status: Full code Adv Dir: None in place, though patient states she does not want prolonged life support if it were to come to that. Dispo: pending work-up of diarrhea/diaphoresis (Patrick Watkins MD R3) Remarks Chest pain Impression: Discussed further with patient after EMR reviewed (with Dr. Sanders) - patient has had chronic angina and she has not had significant change in chest pain during this duration. 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 Per records reviewed, patient had catheterization in [address] Frazier which showed severe left circumflex and right coronary disease not amenable to stenting due to small vessels. For this reason, coronary intervention was reportedly previously deferred. -Patient states she will make an appointment with Dr. Cadet in the near future to discuss further (will defer inpatient Cardiology consultation at this time due to lack of significant changes in coronary disease in the past several years and coronary disease not amenable to intervention) -Patient will continue medical management with ASA, Plavix, JOSE ALEJANDRO, BB, Statin (Patrick Watkins MD R3) Problem Qualifiers (1) Diarrhea: Qualified Codes: R19.7 - Diarrhea, unspecified (2) Chest pain: Qualified Codes: I20.8 - Other forms of angina pectoris (3) Coronary artery disease: Qualified Codes: I25.118 - Atherosclerotic heart disease of [place] coronary artery with other forms of angina pectoris (4) Hypertension: Qualified Codes: I10 - Essential (primary) hypertension Patrick Watkins MD R3 August 29, 2017 09:10 Rita Sanders MD August 29, 2017 12:12
[2017-08-29] MEDS: RANOLAZINE 500 MG EXTENDED RELEASE TAB PO SCH ×2 (09:40→20:05)
[2017-08-29] MEDS: CARVEDILOL 6.25 MG TAB PO SCH ×2 (09:40→20:05)
[2017-08-29] MEDS: FLUoxetine HCL 20 MG CAP PO SCH (09:40)
[2017-08-29] MEDS: FENOFIBRATE 145 MG TAB PO SCH (09:40)
[2017-08-29] MEDS: GABAPENTIN 300 MG CAP PO SCH ×3 (09:40→17:15)
[2017-08-29] MEDS: LISINOPRIL 20 MG TAB PO SCH (09:41)
[2017-08-29] MEDS: ASPIRIN 81 MG CHEW TAB CHEW SCH (09:41)
[2017-08-29] MEDS: PANTOPRAZOLE SOD 40 MG DELAYED RELEASE TAB PO SCH (09:41)
[2017-08-29] MEDS: CLOPIDOGREL 75 MG TAB PO SCH (09:41)
[2017-08-29] MEDS: SODIUM CHLORIDE 0.9% FLUSH 10 ML FLUSH IV FLUSH SCH ×2 (09:42→20:08)
[2017-08-29] MEDS: carBAMazepine 200 MG TAB PO SCH ×2 (09:42→20:05)
[2017-08-29] MEDS: DOCUSATE SODIUM 50 MG/SENNA 8.6 MG TAB PO SCH ×2 (09:54→20:05)
[2017-08-29 10:18] LABS: AUTOMATED NEUTROPHIL # 5.9 TH/MM3 (1.8-7.7); BASOPHIL # 0.1 TH/MM3 (0-0.2); BASOPHIL % 0.8 % (0.0-2.0); EOSINOPHIL # 0.1 TH/MM3 (0-0.4); EOSINOPHIL % 0.8 % (0.0-4.0); HEMOGLOBIN 9.6 GM/DL (11.6-15.3); LYMPH % 28.6 % (9.0-44.0); LYMPHOCYTE # 2.6 TH/MM3 (1.0-4.8); MEAN CELL VOLUME 102.2 FL (80.0-100.0); MEAN CORPUSCULAR HEMOGLOBIN 35.1 PG (27.0-34.0); MEAN CORPUSCULAR HGB CONC 34.3 % (32.0-36.0); MEAN PLATELET VOLUME 7.8 FL (7.0-11.0); MONO % 5.6 % (0.0-8.0); MONOCYTE # 0.5 TH/MM3 (0-0.9); NEUT % 64.2 % (16.0-70.0); PLATELET COUNT 255 TH/MM3 (150-450); RED BLOOD COUNT 2.74 MIL/MM3 (4.00-5.30); RED CELL DISTRIBUTION WIDTH 16.2 % (11.6-17.2); WHITE BLOOD COUNT 9.3 TH/MM3 (4.0-11.0)
[2017-08-29 10:20] LABS: BICARBONATE 21.1 MEQ/L (21.0-32.0); CALCIUM 7.8 MG/DL (8.5-10.1); CREATININE 0.42 MG/DL (0.50-1.00)
[2017-08-29] MEDS ORDERED: POTASSIUM CHLORIDE 20 MEQ CONTROLLED RELEASE TAB PO ONE (10:30)
[2017-08-29] MEDS ORDERED: IOHEXOL 350 MG/ML 10 ML VIAL (for RAD DIAG) IVCONTRAST ONE (11:00)
[2017-08-29] MEDS ORDERED: NORC5TAB PO (11:37)
[2017-08-29] MEDS ORDERED: LIDOCAINE HCL 1% PF 5 ML SYRINGE OTHER ONE (12:00)
[2017-08-29] MEDS ORDERED: SUCCINYLCHOLINE CHLORIDE 100 MG/5 ML SYRINGE IV PUSH ONE (12:00)
[2017-08-29] MEDS ORDERED: PROPOFOL 200 MG/20 ML AMP IV ONE (12:00)
[2017-08-29] MEDS ORDERED: ONDANSETRON HCL 4 MG/2 ML VIAL IV ONE (12:00)
--- NOTE | 2017-08-29 12:31 | EKG ---
Date Performed: 08/29/2017 Time Performed: 10:06:36 PTAGE: 52 years EKG: Sinus rhythm MINIMAL ST DEPRESSION PROLONGED QT INTERVAL ABNORMAL ECG PREVIOUS TRACING : 08/29/2017 01.27 Since the previous tracing, no significant change noted DOCTOR: Khari Mendoza Interpretating Date/Time 08/29/2017 12:30:37
--- NOTE | 2017-08-29 13:08 | RADRPT ---
EXAM DATE/TIME: 08/29/2017 11:08 [facility] COMPARISON: No previous studies available for comparison. INDICATIONS : Diffuse abdomen pain for five days. IV CONTRAST: 90 cc Omnipaque 350 (iohexol) IV ORAL CONTRAST: No oral contrast ingested. RADIATION DOSE: 7.2 CTDIvol (mGy) MEDICAL HISTORY : Cardiovascular disease. Hypertension. Hernia, hiatal.diabetes SURGICAL HISTORY : section. Cholecystectomy. ENCOUNTER: Initial ACUITY: 4 - 6 days PAIN SCALE: 6/10 LOCATION: Bilateral abdomen TECHNIQUE: Volumetric scanning was performed using a multi-row detector CT scanner. The data was post processed with a variety of visualization algorithms including full volume maximum intensity projection, multi -planar sliding thin slab reformation, curved planar reformation, and surface rendering techniques. Using automated exposure control and adjustment of the mA and/or kV according to patient size, radiat ion dose was kept as low as reasonably achievable to obtain optimal diagnostic quality images. DICOM format image data is available electronically for review and comparison. FINDINGS: ABDOMINAL AORTA: There is severe atherosclerotic disease of the entire abdominal aorta but most severe in the infraren al portion. No aneurysm is present. The celiac trunk and superior mesenteric artery demonstrate no si gnificant stenosis and there is no significant atherosclerotic disease at the ostia. There is mild os tial atherosclerotic calcification at the patent single renal arteries bilaterally but no significant stenosis is visualized. Inferior mesenteric artery is patent. RIGHT PELVIS: There is moderate atherosclerotic calcification of the right common iliac artery without high-grade s tenosis. The right external iliac artery demonstrates only minimal atherosclerotic disease. There is severe atherosclerotic disease in the right internal iliac artery with high-grade stenosis proximally and a short segment of occlusion. LEFT PELVIS: There is severe atherosclerotic calcified and noncalcified plaque in the left common iliac artery wit h proximally 60% stenosis proximally. There is also severe atherosclerotic disease of the left chief of internal medicine al iliac artery and moderate atherosclerotic disease of the external iliac artery which tapers distal ly and is occluded at the origin of the common femoral artery. In the inguinal region no blood flow i s identified in the proximal thigh arterial vessels and an apparent bypass graft. Nonvascular findings: There are small bilateral pleural effusions with associated compressive atelectasis. Patient is post cholecystectomy clips in the gallbladder fossa. Liver, adrenal glands, kidneys, spleen, and pancreas demonstrate no acute finding. There is a nonobstructive bowel gas pattern. Trace free fluid is presen t in the right upper quadrant and in the right paracolic gutter. There is a small amount of air withi n the urinary bladder lumen. Right ovary appears enlarged and contains a cystic lesion measuring appr oximately 2.7 cm. There are degenerative changes of the spine. CONCLUSION: 1. There are no findings to indicate mesenteric ischemia on the arterial side. There is severe athero sclerotic disease of the abdominal aorta but mesenteric vasculature demonstrates no significant ather osclerotic disease or stenosis. 2. There is occlusion of the distal left external iliac artery and left common femoral artery. 3. Severe atherosclerotic disease in the left common iliac artery proximally with estimated 60% steno sis. There is a short segment of complete occlusion of the right internal iliac artery. 4. There are small bilateral pleural effusions. 5. Enlarged right ovary containing at least one cystic lesion measuring 2.7 cm. Given the patient's a ge, suggest followup with pelvis ultrasound for further characterization. Andrew Bah MD on August 29, 2017 at 12:55 Board Certified Radiologist. This report was verified electronically.
--- NOTE | 2017-08-29 13:54 | GIPROC ---
[facility] [address] [facility]. [facility], [address] COLONOSCOPY PROCEDURE REPORT EXAM DATE: 08/29/2017 PATIENT NAME: Arleth Velez MR #: [id number] BIRTHDATE: 1965 ENDOSCOPIST: Bridget Chopra MD ORDER #: [id number] EXTENSION SERVICE AGENT: Myla Farnsworth STATUS: inpatient INDICATIONS: The patient is a 52 yr old female here for a colonoscopy due to abdominal pain PROCEDURE PERFORMED: Colonoscopy with biopsy MEDICATIONS: None and Per Anesthesia. PREP QUALITY: good PREP TYPE:Other: ESTIMATED BLOOD LOSS: None CONSENT: The patient understands the risks and benefits of the procedure and understands that these risks include, but are not limited to: sedation, allergic reaction, infection, perforation and/or bleeding. Alternative means of evaluation and treatment include, among others: physical exam, x-rays, and/or surgical intervention. The patient elects to proceed with this endoscopic procedure. medical equipment was checked for proper function. Hand hygiene and appropriate measures for infection prevention was taken. After the risks, benefits and alternatives of the procedure were thoroughly explained, Informed consent was verified, confirmed and timeout was successfully executed by the treatment team. A digital exam revealed external hemorrhoids The Pentax [id number] endoscope was introduced through the anus and advanced to the cecum, which was identified by both the appendix and ileocecal valve. The instrument was then slowly withdrawn as the colon was fully examined. COLON FINDINGS: Diverticulosis sigmoid,descending-random biopsies from ascending and descending. Retroflexed views revealed internal hemorrhoids and Retroflexed views revealed small internal hemorrhoids The scope was then completely withdrawn from the patient and the procedure terminated. PROCEDURE WITHDRAWAL TIME:6minutes ADVERSE EVENTS: There were no complications. IMPRESSIONS: 1. Diverticulosis sigmoid,descending-random biopsies from ascending and descending 2. Retroflexed views revealed internal hemorrhoids 3. Retroflexed views revealed small internal hemorrhoids 4. Revealed external hemorrhoids RECOMMENDATIONS: 1. Await biopsy results. Biopsy results will not be ready for 7-10 days. If you don't hear from us in two weeks, call our office for results. 2. Benefiber 2 tsp daily 3. 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
[2017-08-29] MEDS ORDERED: DO NOT ADM ANY ANTICOAGULANT DRUGS PRN ×2 (14:15)
[2017-08-29] MEDS: NS + KCL 20 MEQ INJ 1,000 ML IV SCH ×2 (16:00→20:14)
[2017-08-29 17:08] VITALS: BP 180/80; PULSE 78; RESP 20; TEMP 99.2; O2SAT 99
[2017-08-29] MEDS: DICYCLOMINE HCL 20 MG TAB PO SCH (17:15)
[2017-08-29] MEDS ORDERED: WHEA1POW13 PO (17:44)
[2017-08-29] MEDS ORDERED: DICY10 PO (17:45)
[2017-08-29] MEDS: ATORVASTATIN 40 MG TAB PO SCH (20:04)
[2017-08-29 21:00] VITALS: BP 153/81; PULSE 74; RESP 18; TEMP 97.6; O2SAT 99
[2017-08-29 22:00] VITALS: BP 153/81; PULSE 74; RESP 16; TEMP 97.6; O2SAT 99
[2017-08-30 00:30] VITALS: BP 178/93; PULSE 72; RESP 18; TEMP 97.5; O2SAT 98
[2017-08-30] MEDS: ENOXAPARIN SODIUM 40 MG/0.4 ML SYRINGE SQ SCH (01:00)
[2017-08-30] MEDS: ACETAMINOPHEN 325 MG TAB PO PRN ×2 (03:03→08:50)
[2017-08-30 04:57] VITALS: BP 154/89; PULSE 67; RESP 16; TEMP 97.5; O2SAT 99
[2017-08-30 07:00] LABS: AUTOMATED NEUTROPHIL # 6.6 TH/MM3 (1.8-7.7); BASOPHIL # 0.1 TH/MM3 (0-0.2); BASOPHIL % 0.5 % (0.0-2.0); EOSINOPHIL # 0.1 TH/MM3 (0-0.4); EOSINOPHIL % 0.5 % (0.0-4.0); HEMATOCRIT 29.2 % (35.0-46.0); HEMOGLOBIN 10.2 GM/DL (11.6-15.3); LYMPH % 27.3 % (9.0-44.0); LYMPHOCYTE # 2.8 TH/MM3 (1.0-4.8); MEAN CELL VOLUME 101.4 FL (80.0-100.0); MEAN CORPUSCULAR HEMOGLOBIN 35.4 PG (27.0-34.0); MEAN CORPUSCULAR HGB CONC 34.9 % (32.0-36.0); MEAN PLATELET VOLUME 7.6 FL (7.0-11.0); MONO % 7.7 % (0.0-8.0); MONOCYTE # 0.8 TH/MM3 (0-0.9); PLATELET COUNT 283 TH/MM3 (150-450); RED BLOOD COUNT 2.88 MIL/MM3 (4.00-5.30); RED CELL DISTRIBUTION WIDTH 16.1 % (11.6-17.2); WHITE BLOOD COUNT 10.3 TH/MM3 (4.0-11.0)
[2017-08-30 07:28] LABS: CALCIUM 8.9 MG/DL (8.5-10.1); CREATININE 0.64 MG/DL (0.50-1.00)
[2017-08-30 07:47] VITALS: BP 180/100; PULSE 70; RESP 20; TEMP 98.3; O2SAT 99
--- NOTE | 2017-08-30 08:12 | HHI.FPPN ---
Subjective Remarks Pt seen and examined this morning. No acute events overnight. Pt reports feeling well overall, significantly improved compared to when she was admitted. She has not yet had a BM, +flatus. She denies acute chest pain or shortness of breath. Abdominal pain is stable. She expresses the desire to go home. (Maria Eugenia Adair MD R3) Objective Vitals Vital Signs Date Time Temp Pulse Resp B/P (MAP) Pulse Ox O2 Delivery O2 Flow Rate FiO2 08/30/17 04:57 97.5 67 16 154/89 (110) 99 08/30/17 01:00 16 08/30/17 00:30 97.5 72 18 178/93 (121) 98 08/29/17 22:00 97.6 74 16 153/81 (105) 99 08/29/17 21:00 97.6 74 18 153/81 (105) 99 08/29/17 17:08 99.2 78 20 180/80 (113) 99 08/29/17 14:30 97.9 75 19 167/88 (114) 100 Room Air 08/29/17 14:15 77 18 164/95 (118) 99 Room Air 08/29/17 14:00 75 22 155/84 (107) 100 Room Air 08/29/17 13:57 97.7 75 22 166/82 (110) 100 Room Air 08/29/17 08:19 98.2 74 20 138/84 (102) 96 I/O 08/29/17 08/29/17 08/29/17 08/30/17 08/30/17 08/30/17 07:00 15:00 23:00 07:00 15:00 23:00 Intake Total 300 ml Balance 300 ml Intake Oral 0 ml IV Total 0 ml Other 300 ml # Voids 6 1 # Bowel Movements 2 (Maria Eugenia Adair MD R3) Result Diagram: 08/30/17 0631 08/30/17 0631 Objective Remarks GENERAL: NAD. SKIN: No visible rashes or lesions. EYES: EOM grossly I. ENT: MMM, no pain of TMJ with opening/closing of mouth. Patient demonstrates that pain is more mid jaw than by TMJ. NECK: Supple, non-tender, no lymphadenopathy CARDIOVASCULAR: NRRR. Normal S1/S2. No MRG. No LE edema RESPIRATORY: Normal rate and effort. CTAB. No crackles or wheezes. GASTROINTESTINAL: Abdomen soft, non-distended. Reported mild pain; no guarding or wincing to palpation of any quadrant on exam. Normal bowel signs. No appreciated hepatomegaly or palpated masses MUSCULOSKELETAL: Extremities without edema. LLE s/p AKA, site c/d/i with no erythema, edema, or warmth. RLE lateral malleolus ulcer not inspected today NEUROLOGICAL: Awake and alert. Cranial nerves grossly intact. Moves all extremities without difficulty. Normal speech. Procedures EGD 08/27/17 (Maria Eugenia Adair MD R3) A/P Assessment and Plan 52 yo female with PMH of DM with neuropathy, HTN, CAD presenting with: facial pain, chronic diarrhea, urinary retention. GI has been consulted, appreciate recommendations and intervention, status post EGD/Colonoscopy, anticipate discharge later today. Discharge Planning Anticipate discharge later today (Maria Eugenia Adair MD R3) Attending Attestation Patient seen and examined with Dr Adair Case discussed in detail Stable for discharge Agree with above documentation (Alex Kumar MD) Problem List: (1) Diarrhea ICD Codes: R19.7 - Diarrhea, unspecified Status: Acute Plan: Impression: Chronic, per review of EMR this has been ongoing for at least the past 6 months. May be related to medications versus celiac or lactose intolerance versus colitis versus others. ESR normal WBC slightly elevated, this has been a chronic issue as well CMP- wnl UA abnormal, urine culture: No growth to date 48 Lactic acid reassuring Associated with Hgb 15.4 (admission) -> 9.6 (08/27) Cdiff PCR, stool ova/parasites negative Viral antigen panel negative EGD- gastritis -GI consulted, appreciate recommendations and intervention -Colonoscopy completed -CTA abdomen done and resulted -Status post endoscopy -Protonix 40mg daily -See fluids below (2) Chest pain ICD Codes: R07.9 - Chest pain Status: Acute Plan: Pt denies chest pain this morning Impression: Has chronic angina; takes Nitroglycerin at home Troponin negative x2 on admission, repeat troponin less than 0.02 EKG on admission with ST depression new from 2016; QT prolongation -Will repeat EKG, troponin -Continue home Carvedilol, Lisinopril, ASA 81mg, Plavix (3) Coronary artery disease ICD Codes: I25.10 - Atherosclerosis of coronary artery Status: Chronic Plan: With stable angina Continue home Ranexa, aspirin, plavix, BB, JOSE ALEJANDRO (4) Trigeminal neuralgia of right side of face ICD Codes: G50.0 - Trigeminal neuralgia Plan: Acute on chronic No evidence of dental abscess on exam or lab testing CT scan shows no acute process suspect trigeminal neuralgia Patient reports that pain has decreased in intensity and frequency since starting Tegretol -Continue Tegretol 200 mg BID -Tylenol PRN pain thereafter -Follow clinically (5) Hypertension ICD Codes: I10 - Hypertension Status: Chronic Plan: Continue home Coreg, lisinopril (6) Diabetes ICD Codes: E11.9 - Type 2 diabetes mellitus without complications Status: Chronic Plan: Blood sugar on admission in good control -Continue home gabapentin for neuropathy -Hold metformin -Levemir 5 units BID -Low dose SSI -Accu-checks ACHS (7) Anxiety and depression ICD Codes: F41.8 - Mixed anxiety depressive disorder Status: Acute Plan: Stable Continue home Prozac will hold Trazodone HS since QT prolonged on recent EKG (8) FEN/PPX Plan: Fluids: NS at 125 cc/hr Elecs: monitor and replete PRN Nutrition: Diet diabetic DVT: Lovenox GI: Continue home protonix Code status: Full code Adv Dir: None in place, though patient states she does not want prolonged life support if it were to come to that. (Maria Eugenia Adair MD R3) Problem Qualifiers (1) Diarrhea: Qualified Codes: R19.7 - Diarrhea, unspecified (2) Chest pain: Qualified Codes: I20.8 - Other forms of angina pectoris (3) Coronary artery disease: Qualified Codes: I25.118 - Atherosclerotic heart disease of [place] coronary artery with other forms of angina pectoris (4) Hypertension: Qualified Codes: I10 - Essential (primary) hypertension Maria Eugenia Adair MD R3 August 30, 2017 08:12 Alex Kumar MD August 30, 2017 16:47
[2017-08-30] MEDS: INSULIN ASPART SUPPLEMENTAL SCALE SQ SCH (08:46)
[2017-08-30] MEDS: NS + KCL 20 MEQ INJ 1,000 ML IV SCH (08:46)
[2017-08-30] MEDS: GABAPENTIN 300 MG CAP PO SCH (08:49)
[2017-08-30] MEDS: RANOLAZINE 500 MG EXTENDED RELEASE TAB PO SCH (08:49)
[2017-08-30] MEDS: CLOPIDOGREL 75 MG TAB PO SCH (08:49)
[2017-08-30] MEDS: LISINOPRIL 20 MG TAB PO SCH (08:49)
[2017-08-30] MEDS: FENOFIBRATE 145 MG TAB PO SCH (08:49)
[2017-08-30] MEDS: PANTOPRAZOLE SOD 40 MG DELAYED RELEASE TAB PO SCH (08:49)
[2017-08-30] MEDS: ASPIRIN 81 MG CHEW TAB CHEW SCH (08:49)
[2017-08-30] MEDS: DICYCLOMINE HCL 20 MG TAB PO SCH (08:49)
[2017-08-30] MEDS: carBAMazepine 200 MG TAB PO SCH (08:49)
[2017-08-30] MEDS: DOCUSATE SODIUM 50 MG/SENNA 8.6 MG TAB PO SCH (08:50)
[2017-08-30] MEDS: FLUoxetine HCL 20 MG CAP PO SCH (08:50)
[2017-08-30] MEDS: CARVEDILOL 6.25 MG TAB PO SCH (08:50)
[2017-08-30] MEDS: SODIUM CHLORIDE 0.9% FLUSH 10 ML FLUSH IV FLUSH SCH (08:50)
[2017-08-30 10:00] VITALS: BP 174/90
--- NOTE | 2017-09-01 12:32 | EKG ---
Date Performed: 08/29/2017 Time Performed: 01:27:07 PTAGE: 52 years EKG: Sinus rhythm PROLONGED QT INTERVAL ABNORMAL ECG PREVIOUS TRACING : 08/24/2017 20.15 DOCTOR: Viktor Berry Interpretating Date/Time 09/01/2017 12:31:25
== END 2017-08-30 11:10 | disposition home or self-care (01) ==
LOC: NEPE 19:45 → NEDA 21:51 → NEPHCDU 23:39
PROVIDERS: ADMIT Family Medicine; ATTEND Family Medicine
DX: I25.118 Atherosclerotic heart disease of native coronary artery with other forms of angina pectoris (principal); G50.0 Trigeminal neuralgia; K29.70 Gastritis, unspecified, without bleeding; K21.9 Gastro-esophageal reflux disease without esophagitis; K31.84 Gastroparesis; K52.9 Noninfective gastroenteritis and colitis, unspecified; I11.0 Hypertensive heart disease with heart failure; I50.9 Heart failure, unspecified; I45.81 Long QT syndrome; J44.9 Chronic obstructive pulmonary disease, unspecified; G25.81 Restless legs syndrome; F17.210 Nicotine dependence, cigarettes, uncomplicated; E78.5 Hyperlipidemia, unspecified; F12.90 Cannabis use, unspecified, uncomplicated; F41.8 Other specified anxiety disorders; D64.9 Anemia, unspecified; E78.00 Pure hypercholesterolemia, unspecified; R32 Unspecified urinary incontinence; E11.42 Type 2 diabetes mellitus with diabetic polyneuropathy; Z79.4 Long term (current) use of insulin; Z79.82 Long term (current) use of aspirin; Z79.899 Other long term (current) drug therapy; Z89.612 Acquired absence of left leg above knee; Z90.710 Acquired absence of both cervix and uterus
CPT/HCPCS: 00811; 00813; 43235; 45330; 45380; 70486; 71045; 74174; 74241; 76937; 80048; 80053; 81001; 82550; 82607; 82746; 82948; 83605; 83690; 83735; 83880; 84443; 84484; 85025; 85379; 85610; 85652; 85730; 86140; 87040; 87086; 87205; 87328; 87329; 87493; 87506; 87633; 87804; 88305; 88312; 93005; 96361; 96365; 96372; 96375; 97162; 99285; G0378; G8987; G8988; J0330; J0360; J1650; J1815; J1885; J2270; J2405; J3010; J3475; J3480; J7030; J7120; Q9967

== ENCOUNTER 2017-09-02 20:52 | Inpatient (IN) | END 2017-09-15 12:53 | DRG 233 | DX: I21.4 Non-ST elevation (NSTEMI) myocardial infarction (principal); J96.02 Acute respiratory failure with hypercapnia; J96.01 Acute respiratory failure with hypoxia; K55.1 Chronic vascular disorders of intestine; I95.9 Hypotension, unspecified; I11.0 Hypertensive heart disease with heart failure; K31.84 Gastroparesis; E87.2 Acidosis; I50.9 Heart failure, unspecified; E11.43 Type 2 diabetes mellitus with diabetic autonomic (poly)neuropathy; B37.49 Other urogenital candidiasis; L97.319 Non-pressure chronic ulcer of right ankle with unspecified severity; E11.51 Type 2 diabetes mellitus with diabetic peripheral angiopathy without gangrene; E83.42 Hypomagnesemia; E87.6 Hypokalemia; E78.5 Hyperlipidemia, unspecified; F41.8 Other specified anxiety disorders; G50.0 Trigeminal neuralgia; R32 Unspecified urinary incontinence; E78.00 Pure hypercholesterolemia, unspecified; K21.9 Gastro-esophageal reflux disease without esophagitis; H91.90 Unspecified hearing loss, unspecified ear; F17.210 Nicotine dependence, cigarettes, uncomplicated; D64.9 Anemia, unspecified; J44.9 Chronic obstructive pulmonary disease, unspecified; I25.5 Ischemic cardiomyopathy; M19.90 Unspecified osteoarthritis, unspecified site; R00.0 Tachycardia, unspecified; K59.00 Constipation, unspecified; Z89.612 Acquired absence of left leg above knee; Z79.899 Other long term (current) drug therapy; Z79.84 Long term (current) use of oral hypoglycemic drugs; Z79.82 Long term (current) use of aspirin; I25.2 Old myocardial infarction; Z86.73 Personal history of transient ischemic attack (TIA), and cerebral infarction without residual deficits; Z79.02 Long term (current) use of antithrombotics/antiplatelets; I25.118 Atherosclerotic heart disease of native coronary artery with other forms of angina pectoris; K29.70 Gastritis, unspecified, without bleeding; K52.9 Noninfective gastroenteritis and colitis, unspecified; I45.81 Long QT syndrome; G25.81 Restless legs syndrome ==